=== PATIENT | male | born 1935 | race Caucasian/White ===

== ENCOUNTER → 2016-10-18 | Outpatient (CLI) | payer MEDICARE, MEDICAID | LOC: RAD 13:54 | PROVIDERS: ATTEND Specialist | DX: C90.02 Multiple myeloma in relapse (principal) | CPT/HCPCS: 77075 ==

== ENCOUNTER 2016-10-30 13:11 | Emergency (ER) | payer MEDICARE, MEDICAID ==
[~2016-10-30 13:11] MED LIST: ASPIRIN 81 MG TABLET, CHEWABLE ONE; CLOPIDOGREL BISULFATE 75 MG TABLET ONE; NITROGLYCERIN 0.4 MG/TAB 25 TAB/BOTTLE ONE
[2016-10-30] MEDS ORDERED: ENOXAPARIN SODIUM INJ 100 MG/1 ML DISP.SYRIN SUBCUT ONE (13:34)
[2016-10-30] MEDS ORDERED: ASPIRIN 81 MG TABLET, CHEWABLE PO ONE (13:35)
[2016-10-30] MEDS ORDERED: NITROGLYCERIN 0.4 MG/TAB 25 TAB/BOTTLE SL PRN (13:35)
[2016-10-30] MEDS ORDERED: MORPHINE SULFATE 10 MG/ML INJ IV ONE (13:35)
--- NOTE | 2016-10-30 13:42 | ER Document Report ---
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 He has never had this pain before. Pain is constant and does not radiate. Denies back pain , nausea, vomiting, fevers, cough, shortness of breath, headache, numbness or tingling. TRAVEL OUTSIDE OF THE [place] IN LAST 30 DAYS: No - Related Data Allergies/Adverse Reactions: No Known Drug Allergies Allergy (Verified 10/30/16 13:49) Past Medical History - General Information source: Patient, Relative - - Social History Smoking Status: Unknown if Ever Smoked Family History: Reviewed & Not Pertinent - Past Medical History Cardiac Medical History: Reports: Hx Congestive Heart Failure, Hx Coronary Artery Disease, Hx Hypercholesterolemia, Hx Hypertension Denies: Hx Heart Attack Pulmonary Medical History: Reports: Hx Pneumonia Denies: Hx Asthma, Hx Bronchitis, Hx COPD, Hx Tuberculosis Neurological Medical History: Denies: Hx Cerebrovascular Accident, Hx Seizures Renal/ Medical History: Reports: None Malignancy Medical History: Reports Other - Multiple Myeloma Musculoskeltal Medical History: Reports Hx Arthritis Psychiatric Medical History: Denies: Hx Depression Past Surgical History: Reports: Hx Appendectomy, Hx Herniorrhaphy - Immunizations Hx Diphtheria, Pertussis, Tetanus Vaccination: No Review of Systems - Review of Systems Notes: REVIEW OF SYSTEMS: CONSTITUTIONAL: -fevers, -chills EENT: -eye pain, -difficulty swallowing, -nasal congestion CARDIOVASCULAR: +chest pain, -syncope. RESPIRATORY: -cough, -SOB GASTROINTESTINAL: -abdominal pain, - nausea, -vomiting, -diarrhea GENITOURINARY: -dysuria, -hematuria MUSCULOSKELETAL: -back pain, -neck pain SKIN: -rash or skin lesions. HEMATOLOGIC: -easy bruising or bleeding. LYMPHATIC: -swollen, enlarged glands. NEUROLOGICAL: -altered mental status or loss of consciousness, -headache, - neurologic symptoms PSYCHIATRIC: -anxiety, -depression. ALL OTHER SYSTEMS REVIEWED AND NEGATIVE. Physical Exam - Vital signs Vitals: Resp BP Pulse Ox 26 H 129/56 H 95 10/30/16 13:25 10/30/16 13:25 10/30/16 13:25 HR 101, BP 125/52, Temp 98.3, Pulse Ox 100% on RA - Notes Notes: PHYSICAL EXAMINATION: GENERAL: Ill-appearing and in mild acute distress. HEAD: Atraumatic, normocephalic. EYES: Pupils equal round and reactive to light, extraocular movements intact, sclera anicteric, conjunctiva are normal. ENT: nares patent, oropharynx clear without exudates. Moist mucous membranes. NECK: Normal range of motion, supple without lymphadenopathy LUNGS: Breath sounds clear to auscultation bilaterally and equal. No wheezes rales or rhonchi. HEART: Regular rate and rhythm without murmurs ABDOMEN: Soft, nontender, normoactive bowel sounds. No guarding, no rebound. No masses appreciated. EXTREMITIES: Normal range of motion, no pitting or edema. No cyanosis. NEUROLOGICAL: Cranial nerves grossly intact. Normal speech, normal gait. Normal sensory, motor, and reflex exams. PSYCH: Normal mood, normal affect. SKIN: Warm, Dry, normal turgor, no rashes or lesions noted. Course - Re-evaluation Re-evalutation: Patient with active chest pain, diaphoresis and paleness. New left bundle- branch block on EKG compared to his EKG from one year ago. Activating STEMI protocol. Patient has lesions on his brain from multiple myeloma and TNK is contraindicated due to this. Providing aspirin, Lovenox, nitroglycerin, morphine and Plavix. He has not taken his home Eliquiis today. 10/30/16 13:[address] Lawson at [facility] and she has accepted patient. Arranging transportation. 10/30/16 13:[address] Lawson and she spoke to [facility], Dr. Garzon. He recommends a beta stella if the pressure can tolerate it and Lovenox. Lovenox already given. BP decreased to 95/66 after nitro. Chest pain free. Will hold the beta-stella, morphine and additional nitros due to the hypotension. Stable for transfer at 14:05 when helicopter left. - Vital Signs Vital signs: Temp Pulse Resp BP Pulse Ox 98.3 F 95 28 H 114/55 L 96 10/30/16 13:35 10/30/16 13:35 10/30/16 14:06 10/30/16 14:10 10/30/16 14:06 - Laboratory Result Diagrams: 10/30/16 13:27 10/30/16 13:27 Laboratory results interpreted by me: 10/30/16 10/30/16 10/30/16 13:27 13:27 13:27 RBC 2.21 L Hgb 8.0 L Hct 23.6 L MCV 107 H MCH 36.3 H RDW 18.4 H Plt Count 76 L Seg Neuts % (Manual) 28 L Band Neutrophils % 2 L Lymphocytes % (Manual) 48 H Monocytes % (Manual) 19 H Abs Neuts (Manual) 1.4 L Carbon Dioxide 19 L Creatinine 1.93 H Est GFR ( Amer) 41 L Est GFR (Non-Af Amer) 33 L Glucose 121 H Magnesium 1.4 L Creatine Kinase 22 L NT-Pro-B Natriuret Pep 2970 H Total Protein 6.2 L - Diagnostic Test Radiology reviewed: Image reviewed, Reports reviewed Radiology results interpreted by me: 10/30/16 13:57 CXR: NAD - EKG Interpretation by Me EKG shows normal: Sinus rhythm [place]/QRS: LBBB When compared to previous EKG there are: Changes noted - New onset LBBB Additional EKG results interpreted by me: No [place] criteria Critical Care Note - Critical Care Note Total time excluding time spent on procedures (mins): 45 Discharge - Discharge Clinical Impression: New onset left bundle branch block (LBBB) Chest pain Qualifiers: Chest pain type: chest pain due to myocardial ischemia Ischemic chest pain type : unspecified angina pectoris type Qualified Code(s): I20.9 - Angina pectoris, unspecified Condition: Serious Disposition: [facility] Admitting Provider: Dr. Lawson
[2016-10-30 13:55] LABS: HEMATOCRIT 23.6 % (37.9-51.0); HGB HCT DIFFERENCE 0.4; MEAN CORPUSCULAR HEMOGLOBIN 36.3 pg (27.0-33.4); MEAN CORPUSCULAR HGB CONC 33.9 g/dL (32.0-36.0); MEAN CORPUSCULAR VOLUME 107 fl (80-97); RED BLOOD COUNT 2.21 10^6/uL (4.35-5.55); RED CELL DISTRIBUTION WIDTH 18.4 % (11.5-14.0); WHITE BLOOD COUNT 4.7 10^3/uL (4.0-10.5)
[2016-10-30 14:04] LABS: ALANINE AMINOTRANSFERASE 45 U/L (21-72); ALBUMIN 3.6 g/dL (3.5-5.0); ALKALINE PHOSPHATASE 65 U/L (38-126); ANION GAP 16 (5-19); ASPARTATE AMINO TRANSFERASE 34 U/L (17-59); BILIRUBIN,TOTAL 1.3 mg/dL (0.2-1.3); BLOOD UREA NITROGEN 18 mg/dL (7-20); CARBON DIOXIDE 19 mmol/L (22-30); CHLORIDE 107 mmol/L (98-107); CREATINE KINASE 22 U/L (55-170); CREATININE RESULT 1.93 mg/dL (0.52-1.25); GLUCOSE 121 mg/dL (75-110); MAGNESIUM 1.4 mg/dL (1.6-2.3); POTASSIUM 3.9 mmol/L (3.6-5.0); SODIUM 141.6 mmol/L (137-145); TOTAL PROTEIN 6.2 g/dL (6.3-8.2)
[2016-10-30 14:10] LABS: BAND NEUTROPHILS % (MANUAL) 2 % (3-5); BASOPHILS % (MANUAL) 1 % (0-2); EOSINOPHILS % (MANUAL) 0 % (0-6); LYMPHOCYTES % (MANUAL) 48 % (13-45); TOTAL CELLS COUNTED 100
[2016-10-30 14:14] LABS: ANISOCYTOSIS 1+; POLYCHROMASIA SLIGHT
[2016-10-30 14:18] LABS: CREATINE KINASE MB < 0.22 ng/mL (<4.55)
[2016-10-30 14:20] LABS: TROPONIN I 0.064 ng/mL
[2016-10-30 14:24] VITALS: BP 114/55
[2016-10-30] MEDS ORDERED: CLOPIDOGREL BISULFATE 300 MG TABLET PO ONE (14:27)
[2016-10-30] MEDS ORDERED: CLOPIDOGREL BISULFATE 75 MG TABLET PO ONE (14:31)
--- NOTE | 2016-10-30 18:38 | EKG REPORT ---
SEVERITY:- ABNORMAL ECG - SINUS TACHYCARDIA ATRIAL PREMATURE COMPLEX LEFT BUNDLE BRANCH BLOCK : Confirmed by: Carmen Corona 30-Oct-2016 18:38:01
== END 2016-10-30 14:15 | disposition short-term general hospital (02) ==
LOC: ER 13:11
DX: I44.7 Left bundle-branch block, unspecified (principal); I20.9 Angina pectoris, unspecified; R07.9 Chest pain, unspecified; I25.10 Atherosclerotic heart disease of native coronary artery without angina pectoris; I50.9 Heart failure, unspecified; E78.00 Pure hypercholesterolemia, unspecified; I11.0 Hypertensive heart disease with heart failure
CPT/HCPCS: 93005; 99291; 96372; 36415; 82553; 82550; 83735; 85025; 80053; 84484; 83880; 71010; 93010; A9270 ×2; J1650

== ENCOUNTER 2016-11-29 03:42 | Emergency (ER) | payer MEDICARE, MEDICAID ==
[2016-11-29 06:14] LABS: HEMATOCRIT 28.4 % (37.9-51.0); HEMOGLOBIN 9.8 g/dL (13.5-17.0); MEAN CORPUSCULAR HEMOGLOBIN 32.4 pg (27.0-33.4); MEAN CORPUSCULAR HGB CONC 34.4 g/dL (32.0-36.0); RED BLOOD COUNT 3.01 10^6/uL (4.35-5.55); RED CELL DISTRIBUTION WIDTH 21.2 % (11.5-14.0); WHITE BLOOD COUNT 5.7 10^3/uL (4.0-10.5)
[2016-11-29 06:26] LABS: ALANINE AMINOTRANSFERASE 80 U/L (21-72); ALBUMIN 3.5 g/dL (3.5-5.0); ALKALINE PHOSPHATASE 70 U/L (38-126); ANION GAP 13 (5-19); ASPARTATE AMINO TRANSFERASE 68 U/L (17-59); BILIRUBIN,TOTAL 0.7 mg/dL (0.2-1.3); BLOOD UREA NITROGEN 23 mg/dL (7-20); CALCIUM 9.8 mg/dL (8.4-10.2); CARBON DIOXIDE 25 mmol/L (22-30); CHLORIDE 107 mmol/L (98-107); CREATINE KINASE 56 U/L (55-170); CREATININE RESULT 1.95 mg/dL (0.52-1.25); GLUCOSE 150 mg/dL (75-110); POTASSIUM 3.6 mmol/L (3.6-5.0); SODIUM 145.1 mmol/L (137-145); TOTAL PROTEIN 6.2 g/dL (6.3-8.2)
[2016-11-29 06:28] LABS: BAND NEUTROPHILS % (MANUAL) 1 % (3-5); BASOPHILS % (MANUAL) 0 % (0-2); EOSINOPHILS % (MANUAL) 0 % (0-6); LYMPHOCYTES % (MANUAL) 30 % (13-45); TOTAL CELLS COUNTED 100
[2016-11-29 06:35] LABS: ANISOCYTOSIS 3+; OVALOCYTES 1+; POIKILOCYTOSIS 2+; POLYCHROMASIA SLIGHT; TEAR DROP CELLS SLIGHT
[2016-11-29 06:36] LABS: ROULEAUX 1+
[2016-11-29 06:38] LABS: CREATINE KINASE MB 0.72 ng/mL (<4.55)
[2016-11-29 06:43] LABS: MEAN CORPUSCULAR VOLUME 94 fl (80-97)
[2016-11-29 06:45] LABS: TROPONIN I 0.226 ng/mL
[2016-11-29] MEDS ORDERED: ASPIRIN 325 MG TABLET PO ONE (06:45)
--- NOTE | 2016-11-29 07:32 | ER Document Report ---
ED General - General Chief Complaint: Fall Stated Complaint: FALL WEAKNESS Mode of Arrival: Ambulatory Information source: Patient Notes: 81 yr old male hx of MM , chf, anemia, recent transfusion presents with complaints of weakness by since last night. pt fell twice, admits ot generalized weakness. recent transfer to [facility] TRAVEL OUTSIDE OF THE [place] IN LAST 30 DAYS: No - HPI Onset: Yesterday Onset/Duration: Sudden Quality of pain: No pain Severity: Mild Pain Level: Denies Associated symptoms: Weakness Exacerbated by: Denies Relieved by: Denies Similar symptoms previously: Yes Recently seen / treated by doctor: Yes - Related Data Allergies/Adverse Reactions: No Known Drug Allergies Allergy (Verified 10/30/16 13:49) Past Medical History - Social History Smoking Status: Never Smoker Cigarette use (# per day): No Chew tobacco use (# tins/day): No Smoking Education Provided: No Family History: Reviewed & Not Pertinent - Past Medical History Cardiac Medical History: Reports: Hx Congestive Heart Failure, Hx Coronary Artery Disease, Hx Hypercholesterolemia, Hx Hypertension Denies: Hx Heart Attack Pulmonary Medical History: Reports: Hx Pneumonia Denies: Hx Asthma, Hx Bronchitis, Hx COPD, Hx Tuberculosis Neurological Medical History: Denies: Hx Cerebrovascular Accident, Hx Seizures Renal/ Medical History: Reports: Hx End Stage Renal Disease. Denies: Hx Peritoneal Dialysis Musculoskeltal Medical History: Reports Hx Arthritis Psychiatric Medical History: Denies: Hx Depression Past Surgical History: Reports: Hx Appendectomy, Hx Herniorrhaphy - Immunizations Hx Diphtheria, Pertussis, Tetanus Vaccination: No Review of Systems - Review of Systems Notes: REVIEW OF SYSTEMS: CONSTITUTIONAL : Denies fever, chills, or sweats. Denies recent illness. EENT: Denies eye, ear, throat, or mouth pain or symptoms. Denies nasal or sinus congestion or discharge. Denies throat, tongue, or mouth swelling or difficulty swallowing. CARDIOVASCULAR: Denies chest pain. Denies palpitations or racing or irregular heart beat. Denies ankle edema. RESPIRATORY: Denies cough, cold, or chest congestion. Denies shortness of breath, difficulty breathing, or wheezing. GASTROINTESTINAL: Denies abdominal pain or distention. Denies nausea, vomiting , or diarrhea. Denies blood in vomitus, stools, or per rectum. Denies black, tarry stools. Denies constipation. GENITOURINARY: Denies difficulty urinating, painful urination, burning, frequency, blood in urine, or discharge. MUSCULOSKELETAL: Denies back or neck pain or stiffness. Denies joint pain or swelling. SKIN: Denies rash, lesions or sores. HEMATOLOGIC : Denies easy bruising or bleeding. LYMPHATIC: Denies swollen, enlarged glands. NEUROLOGICAL: Admits to generalized weakness PSYCHIATRIC: Denies anxiety or stress. Denies depression, suicidal ideation, or homicidal ideation. ALL OTHER SYSTEMS REVIEWED AND NEGATIVE. Dictation was performed using [employer] voice recognition software PHYSICAL EXAMINATION: GENERAL: Well-appearing, well-nourished and in no acute distress. HEAD: Atraumatic, normocephalic. EYES: Pupils equal round and reactive to light, extraocular movements intact, sclera anicteric, conjunctiva are normal. ENT: Nares patent, oropharynx clear without exudates. Moist mucous membranes. NECK: Normal range of motion, supple without lymphadenopathy LUNGS: Breath sounds clear to auscultation bilaterally and equal. No wheezes rales or rhonchi. HEART: Regular rate and rhythm without murmurs ABDOMEN: Soft, nontender, nondistended abdomen. No guarding, no rebound. No masses appreciated. Musculoskeletal: Normal range of motion, no pitting or edema. No cyanosis. NEUROLOGICAL: Cranial nerves grossly intact. Normal speech, normal gait. Normal sensory, motor exams PSYCH: Normal mood, normal affect. SKIN: Warm, Dry, normal turgor, no rashes or lesions noted. Physical Exam - Vital signs Vitals: Temp Pulse Resp BP Pulse Ox 98.2 F 98 16 105/80 91 L 11/29/16 03:53 11/29/16 03:53 11/29/16 03:53 11/29/16 03:53 11/29/16 03:53 Course - Re-evaluation Re-evalutation: 11/29/16 07:32 contacted [facility] pt did not have any cardiac intervention there, troponins were never elevated 11/29/16 07:38 Given the patient's cardiac enzymes are elevated today I have contacted for transfer 11/29/16 07:[address] cain who will accept patient, aspirin given , he wishes to hold off on any lovenox or heparin. - Vital Signs Vital signs: Temp Pulse Resp BP Pulse Ox 98.2 F 98 20 124/69 100 11/29/16 03:53 11/29/16 03:53 11/29/16 07:01 11/29/16 07:01 11/29/16 07:01 - Laboratory Result Diagrams: 11/29/16 05:30 11/29/16 05:30 Laboratory results interpreted by me: 11/29/16 11/29/16 05:30 05:30 RBC 3.01 L Hgb 9.8 L Hct 28.4 L RDW 21.2 H Plt Count 76 L Band Neutrophils % 1 L Monocytes % (Manual) 25 H Sodium 145.1 H BUN 23 H Creatinine 1.95 H Est GFR ( Amer) 40 L Est GFR (Non-Af Amer) 33 L Glucose 150 H AST 68 H ALT 80 H Total Protein 6.2 L - Diagnostic Test Radiology reviewed: Image reviewed, Reports reviewed - EKG Interpretation by Me EKG shows normal: Sinus rhythm, [place], Intervals, QRS Complexes When compared to previous EKG there are: Changes noted - Previous EKG noted left bundle branch block, today's notes mild ischemic changes Critical Care Note - Critical Care Note Total time excluding time spent on procedures (mins): 34 Comments: 34 minutes of critical care time spent in direct contact evaluating and reevaluating the patient, treating symptoms, reviewing labs and studies and speaking with family and consultants excluding any procedures Discharge - Discharge Clinical Impression: Elevated troponin level, Weakness Congestive heart failure Qualifiers: Congestive heart failure type: unspecified congestive heart failure type Congestive heart failure chronicity: unspecified congestive heart failure chronicity Qualified Code(s): I50.9 - Heart failure, unspecified Condition: Stable Disposition: [facility]
--- NOTE | 2016-11-29 08:02 | EKG REPORT ---
SEVERITY:- ABNORMAL ECG - SINUS RHYTHM MULTIPLE VENTRICULAR PREMATURE COMPLEXES INFERIOR INFARCT, AGE INDETERMINATE CONSIDER POSTERIOR INFARCT LATERAL LEADS ARE ALSO INVOLVED BORDERLINE PROLONGED QT INTERVAL : Confirmed by: Vitaliy Scott MD 29-Nov-2016 08:02:16
[2016-11-29 09:11] VITALS: BP 101/63
[2016-11-29 15:05] LABS: PATH REVIEW PATHOLOGIST REVIEWED
== END 2016-11-29 09:11 | disposition short-term general hospital (02) ==
LOC: ER 03:42
DX: I13.2 Hypertensive heart and chronic kidney disease with heart failure and with stage 5 chronic kidney disease, or end stage renal disease (principal); N18.6 End stage renal disease; I50.9 Heart failure, unspecified; I25.10 Atherosclerotic heart disease of native coronary artery without angina pectoris; R74.8 Abnormal levels of other serum enzymes; R53.1 Weakness; Z91.81 History of falling; Z98.890 Other specified postprocedural states
CPT/HCPCS: 93005; 99291; 36415; 82553; 82550; 85025; 85610; 80053; 84484; 93010; A9270

== ENCOUNTER → 2016-12-21 | Outpatient (CLI) | payer MEDICARE, MEDICAID | LOC: RAD 11:44 | PROVIDERS: ATTEND Specialist | DX: C90.02 Multiple myeloma in relapse (principal) | CPT/HCPCS: 77075 ==

== ENCOUNTER → 2016-12-29 | Outpatient (CLI) | payer MEDICARE, MEDICAID ==
[2016-12-29 13:52] LABS: HEMATOCRIT 29.2 % (37.9-51.0); HGB HCT DIFFERENCE 0.8; MEAN CORPUSCULAR HEMOGLOBIN 32.2 pg (27.0-33.4); MEAN CORPUSCULAR HGB CONC 34.2 g/dL (32.0-36.0); MEAN CORPUSCULAR VOLUME 94 fl (80-97); RED CELL DISTRIBUTION WIDTH 17.9 % (11.5-14.0); WHITE BLOOD COUNT 6.6 10^3/uL (4.0-10.5)
[2016-12-29 13:52] LABS: APPEARANCE,URINE SLIGHTLY-CLOUDY; BILIRUBIN,URINE NEGATIVE (NEGATIVE); GLUCOSE, URINE NEGATIVE (NEGATIVE); KETONES,URINE NEGATIVE (NEGATIVE); LEUKOCYTE ESTERASE,URINE NEGATIVE (NEGATIVE); NITRITE,URINE NEGATIVE (NEGATIVE); PROTEIN,URINE NEGATIVE (NEGATIVE); URINE SPECIFIC GRAVITY 1.011; UROBILINOGEN,URINE NEGATIVE mg/dL (<2.0)
[2016-12-29 14:14] LABS: ANION GAP 15 (5-19); BLOOD UREA NITROGEN 25 mg/dL (7-20); CALCIUM 9.2 mg/dL (8.4-10.2); CARBON DIOXIDE 19 mmol/L (22-30); CHLORIDE 108 mmol/L (98-107); CREATININE RESULT 1.58 mg/dL (0.52-1.25); GLUCOSE 115 mg/dL (75-110); PHOSPHORUS 3.5 mg/dL (2.5-4.5); POTASSIUM 5.1 mmol/L (3.6-5.0); SODIUM 142.4 mmol/L (137-145)
== END ==
LOC: OD 13:02
PROVIDERS: ATTEND Internal Medicine Nephrology
DX: I12.9 Hypertensive chronic kidney disease with stage 1 through stage 4 chronic kidney disease, or unspecified chronic kidney disease (principal); N18.3 Chronic kidney disease, stage 3 (moderate); I50.9 Heart failure, unspecified; D64.9 Anemia, unspecified
CPT/HCPCS: 36415; 80048; 81001; 83970; 84100; 85027

== ENCOUNTER 2017-01-12 11:51 | Outpatient (CLI) | payer MEDICARE, MEDICAID ==
[~2017-01-12 11:51] MED LIST changes: +ACETAMINOPHEN 325 MG TABLET PO PRN; -ASPIRIN 81 MG TABLET, CHEWABLE ONE; -CLOPIDOGREL BISULFATE 75 MG TABLET ONE; +DIPHENHYDRAMINE HCL 25 MG CAPSULE PO PRN; +FUROSEMIDE INJ/PF 20 MG/2 ML SDV IV PRN; -NITROGLYCERIN 0.4 MG/TAB 25 TAB/BOTTLE ONE; +NORMAL SALINE 1000 ML 1,000 ML IV PRN
[2017-01-12 12:16] LABS: WHITE BLOOD COUNT 3.6 10^3/uL (4.0-10.5)
[2017-01-12 12:25] LABS: HEMATOCRIT 18.2 % (37.9-51.0); HGB HCT DIFFERENCE 0.7; MEAN CORPUSCULAR HEMOGLOBIN 32.6 pg (27.0-33.4); MEAN CORPUSCULAR HGB CONC 34.8 g/dL (32.0-36.0); MEAN CORPUSCULAR VOLUME 94 fl (80-97); RED BLOOD COUNT 1.94 10^6/uL (4.35-5.55); RED CELL DISTRIBUTION WIDTH 18.9 % (11.5-14.0)
[2017-01-12 12:35] LABS: HEMOGLOBIN 6.3 g/dL (13.5-17.0)
[2017-01-12 17:55] VITALS: BP 104/47
== END 2017-01-12 17:53 | disposition home or self-care (01) ==
LOC: II 11:51 → 5TH 12:51 → 2S 16:17 → II 17:53
PROVIDERS: ATTEND Specialist
PROC: 30233N0 Transfusion of Autologous Red Blood Cells into Peripheral Vein, Percutaneous Approach (ICD-10-PCS; principal; 2017-01-12)
DX: D64.9 Anemia, unspecified (principal); C90.00 Multiple myeloma not having achieved remission
CPT/HCPCS: 86900; 86901; 36430; 86850; 86920; P9016; A9270 ×2; J1940

== ENCOUNTER → 2017-01-26 | Outpatient (CLI) | payer MEDICARE, MEDICAID ==
[~2017-01-26] MED LIST changes: +ACETAMINOPHEN 325 MG TABLET ONE; -ACETAMINOPHEN 325 MG TABLET PO PRN; +DIPHENHYDRAMINE HCL 25 MG CAPSULE ONE; -DIPHENHYDRAMINE HCL 25 MG CAPSULE PO PRN; -FUROSEMIDE INJ/PF 20 MG/2 ML SDV IV PRN; -NORMAL SALINE 1000 ML 1,000 ML IV PRN
[2017-01-27 11:07] LABS: HEMATOCRIT 24.3 % (37.9-51.0); HEMOGLOBIN 8.1 g/dL (13.5-17.0); MEAN CORPUSCULAR HEMOGLOBIN 31.8 pg (27.0-33.4); MEAN CORPUSCULAR HGB CONC 33.5 g/dL (32.0-36.0); MEAN CORPUSCULAR VOLUME 95 fl (80-97); RED BLOOD COUNT 2.56 10^6/uL (4.35-5.55); RED CELL DISTRIBUTION WIDTH 19.2 % (11.5-14.0); WHITE BLOOD COUNT 5.6 10^3/uL (4.0-10.5)
== END ==
LOC: II 10:52
PROVIDERS: ATTEND Specialist
PROC: 30233N1 Transfusion of Nonautologous Red Blood Cells into Peripheral Vein, Percutaneous Approach (ICD-10-PCS; principal; 2017-01-26)
DX: D64.9 Anemia, unspecified (principal); C90.00 Multiple myeloma not having achieved remission
CPT/HCPCS: 86900; 86901; 36430; 86850; 86920; P9016; A9270 ×2

== ENCOUNTER → 2017-02-21 | Outpatient (CLI) | payer MEDICARE, MEDICAID ==
[2017-02-22 10:47] LABS: HEMATOCRIT 25.5 % (37.9-51.0); HEMOGLOBIN 8.4 g/dL (13.5-17.0); HGB HCT DIFFERENCE -0.3; MEAN CORPUSCULAR HEMOGLOBIN 30.1 pg (27.0-33.4); RED BLOOD COUNT 2.79 10^6/uL (4.35-5.55); RED CELL DISTRIBUTION WIDTH 18.9 % (11.5-14.0); WHITE BLOOD COUNT 3.4 10^3/uL (4.0-10.5)
[2017-02-22 11:09] LABS: ANION GAP 13 (5-19); BLOOD UREA NITROGEN 14 mg/dL (7-20); CARBON DIOXIDE 16 mmol/L (22-30); CHLORIDE 117 mmol/L (98-107); CREATININE RESULT 1.31 mg/dL (0.52-1.25); GLUCOSE 141 mg/dL (75-110); PHOSPHORUS 2.8 mg/dL (2.5-4.5); SODIUM 146.2 mmol/L (137-145)
[2017-02-22 11:26] LABS: CALCIUM 6.2 mg/dL (8.4-10.2)
[2017-02-22 11:49] LABS: MEAN CORPUSCULAR VOLUME 91 fl (80-97)
[2017-02-22 11:51] LABS: BAND NEUTROPHILS % (MANUAL) 1 % (3-5); BASOPHILS % (MANUAL) 0 % (0-2); EOSINOPHILS % (MANUAL) 1 % (0-6); LYMPHOCYTES % (MANUAL) 31 % (13-45); TOTAL CELLS COUNTED 100
[2017-02-22 11:52] LABS: ANISOCYTOSIS 2+; OVALOCYTES 1+; POIKILOCYTOSIS 1+; ROULEAUX 1+
== END ==
LOC: OD 11:39
PROVIDERS: ATTEND Internal Medicine Nephrology
DX: I12.9 Hypertensive chronic kidney disease with stage 1 through stage 4 chronic kidney disease, or unspecified chronic kidney disease (principal); N18.3 Chronic kidney disease, stage 3 (moderate); D64.9 Anemia, unspecified; E87.5 Hyperkalemia
CPT/HCPCS: 36415; 80048; 82533; 83970; 84100; 85025

== ENCOUNTER → 2017-03-04 | Outpatient (CLI) | payer MEDICARE, MEDICAID ==
[2017-03-05 09:17] LABS: HGB HCT DIFFERENCE -0.5; MEAN CORPUSCULAR HEMOGLOBIN 29.9 pg (27.0-33.4); MEAN CORPUSCULAR HGB CONC 32.6 g/dL (32.0-36.0); MEAN CORPUSCULAR VOLUME 92 fl (80-97); RED BLOOD COUNT 2.51 10^6/uL (4.35-5.55); RED CELL DISTRIBUTION WIDTH 19.7 % (11.5-14.0); WHITE BLOOD COUNT 6.5 10^3/uL (4.0-10.5)
[2017-03-05 09:37] LABS: ANION GAP 13 (5-19); BLOOD UREA NITROGEN 18 mg/dL (7-20); CALCIUM 10.4 mg/dL (8.4-10.2); CARBON DIOXIDE 18 mmol/L (22-30); CHLORIDE 116 mmol/L (98-107); CREATININE RESULT 1.23 mg/dL (0.52-1.25); GLUCOSE 117 mg/dL (75-110); MAGNESIUM 1.5 mg/dL (1.6-2.3); POTASSIUM 4.8 mmol/L (3.6-5.0); SODIUM 146.8 mmol/L (137-145)
[2017-03-05 09:43] LABS: HEMOGLOBIN 7.5 g/dL (13.5-17.0)
[2017-03-08 07:20] LABS: VITAMIN D 25-HYDROXY 27.9 ng/mL (30.0-100.0)
[2017-03-08 13:10] LABS: VITAMIN D 1,25 DIHYDROXY 23.4 pg/mL (19.9-79.3)
== END ==
LOC: OD 10:33
PROVIDERS: ATTEND Internal Medicine Nephrology
DX: N18.3 Chronic kidney disease, stage 3 (moderate) (principal); E87.5 Hyperkalemia; D64.9 Anemia, unspecified; E83.50 Unspecified disorder of calcium metabolism
CPT/HCPCS: 36415; 80048; 82306; 82533; 82652; 83735; 83970; 84100; 85027

== ENCOUNTER → 2017-03-07 | Outpatient (CLI) | payer MEDICARE, MEDICAID ==
[2017-03-07 11:44] LABS: HGB HCT DIFFERENCE -0.5; MEAN CORPUSCULAR HEMOGLOBIN 30.4 pg (27.0-33.4); MEAN CORPUSCULAR HGB CONC 32.6 g/dL (32.0-36.0); MEAN CORPUSCULAR VOLUME 93 fl (80-97); RED BLOOD COUNT 2.47 10^6/uL (4.35-5.55); RED CELL DISTRIBUTION WIDTH 20.9 % (11.5-14.0); WHITE BLOOD COUNT 8.9 10^3/uL (4.0-10.5)
[2017-03-07 11:47] LABS: HEMOGLOBIN 7.5 g/dL (13.5-17.0)
== END ==
LOC: OD 10:53
PROVIDERS: ATTEND Internal Medicine Nephrology
DX: D64.9 Anemia, unspecified (principal); C90.00 Multiple myeloma not having achieved remission
CPT/HCPCS: 36415; 85027

== ENCOUNTER 2017-03-10 07:41 | Outpatient (CLI) | payer MEDICARE, MEDICAID ==
[2017-03-10 08:06] LABS: HEMATOCRIT 19.7 % (37.9-51.0); HGB HCT DIFFERENCE 0.1; MEAN CORPUSCULAR HEMOGLOBIN 30.7 pg (27.0-33.4); MEAN CORPUSCULAR HGB CONC 33.5 g/dL (32.0-36.0); MEAN CORPUSCULAR VOLUME 92 fl (80-97); RED BLOOD COUNT 2.15 10^6/uL (4.35-5.55); RED CELL DISTRIBUTION WIDTH 20.8 % (11.5-14.0); WHITE BLOOD COUNT 6.5 10^3/uL (4.0-10.5)
[2017-03-10 08:12] LABS: HEMOGLOBIN 6.6 g/dL (13.5-17.0)
[2017-03-10] MEDS ORDERED: NORMAL SALINE 250 ML IV PRN (08:15)
[2017-03-10] MEDS ORDERED: ACETAMINOPHEN 325 MG TABLET PO PRN (08:16)
[2017-03-10] MEDS ORDERED: DIPHENHYDRAMINE HCL 25 MG CAPSULE PO PRN (08:16)
[2017-03-10] MEDS ORDERED: FUROSEMIDE INJ/PF 20 MG/2 ML SDV IV PRN (08:17)
[2017-03-10] MEDS ORDERED: DEXAMETHASONE SOD PHOS INJ 10 MG/1 ML VIAL IV PRN (08:18)
[2017-03-10 13:05] VITALS: BP 141/60
== END 2017-03-10 13:26 | disposition home or self-care (01) ==
LOC: II 07:41 → 5TH 07:46 → II 13:26
PROVIDERS: ATTEND Specialist
PROC: 30233N1 Transfusion of Nonautologous Red Blood Cells into Peripheral Vein, Percutaneous Approach (ICD-10-PCS; principal; 2017-03-10)
DX: D64.9 Anemia, unspecified (principal); C90.00 Multiple myeloma not having achieved remission
CPT/HCPCS: 96374; 86900; 86901; 36415; 36430; 86850; 86920; P9016; A9270 ×2; J1100

== ENCOUNTER → 2017-03-31 | Outpatient (CLI) | payer MEDICARE, MEDICAID ==
[2017-03-31 12:38] LABS: HEMOGLOBIN 8.7 g/dL (13.5-17.0); HGB HCT DIFFERENCE 0.1; MEAN CORPUSCULAR HEMOGLOBIN 30.1 pg (27.0-33.4); MEAN CORPUSCULAR HGB CONC 33.4 g/dL (32.0-36.0); MEAN CORPUSCULAR VOLUME 90 fl (80-97); RED BLOOD COUNT 2.88 10^6/uL (4.35-5.55); RED CELL DISTRIBUTION WIDTH 16.3 % (11.5-14.0); WHITE BLOOD COUNT 4.2 10^3/uL (4.0-10.5)
[2017-03-31 13:01] LABS: ANION GAP 13 (5-19); BLOOD UREA NITROGEN 28 mg/dL (7-20); CALCIUM 9.2 mg/dL (8.4-10.2); CARBON DIOXIDE 17 mmol/L (22-30); CHLORIDE 113 mmol/L (98-107); CREATININE RESULT 1.26 mg/dL (0.52-1.25); GLUCOSE 102 mg/dL (75-110); MAGNESIUM 1.9 mg/dL (1.6-2.3); POTASSIUM 4.3 mmol/L (3.6-5.0); SODIUM 142.9 mmol/L (137-145)
== END ==
LOC: OD 12:09
PROVIDERS: ATTEND Internal Medicine Nephrology
DX: N18.3 Chronic kidney disease, stage 3 (moderate) (principal); D64.9 Anemia, unspecified; E87.5 Hyperkalemia; M10.00 Idiopathic gout, unspecified site
CPT/HCPCS: 36415; 80048; 83735; 85027

== ENCOUNTER 2017-04-11 14:14 | Outpatient (CLI) | payer MEDICARE, MEDICAID ==
[~2017-04-11 14:14] MED LIST changes: -ACETAMINOPHEN 325 MG TABLET ONE; +ACETAMINOPHEN 325 MG TABLET PO PRN; -DIPHENHYDRAMINE HCL 25 MG CAPSULE ONE; +DIPHENHYDRAMINE HCL 25 MG CAPSULE PO PRN; +FUROSEMIDE INJ/PF 20 MG/2 ML SDV IV PRN; +NORMAL SALINE INJ/PF 0.9% 10 ML SDV IV PRN
[2017-04-11 14:44] LABS: HEMATOCRIT 23.2 % (37.9-51.0); HEMOGLOBIN 8.2 g/dL (13.5-17.0); HGB HCT DIFFERENCE 1.4; MEAN CORPUSCULAR HEMOGLOBIN 31.9 pg (27.0-33.4); MEAN CORPUSCULAR HGB CONC 35.1 g/dL (32.0-36.0); MEAN CORPUSCULAR VOLUME 91 fl (80-97); RED BLOOD COUNT 2.56 10^6/uL (4.35-5.55); RED CELL DISTRIBUTION WIDTH 16.8 % (11.5-14.0)
[2017-04-11] MEDS ORDERED: NORMAL SALINE 250 ML IV PRN (14:55)
[2017-04-11 20:51] VITALS: BP 128/62
== END 2017-04-11 21:26 | disposition home or self-care (01) ==
LOC: II 14:14 → 2N 14:18 → II 21:26
PROVIDERS: ATTEND Internal Medicine
PROC: 30233N1 Transfusion of Nonautologous Red Blood Cells into Peripheral Vein, Percutaneous Approach (ICD-10-PCS; principal; 2017-04-11)
DX: D64.9 Anemia, unspecified (principal)
CPT/HCPCS: 86900; 86901; 36415; 36430; 86850; 86920; P9016; A9270 ×2; J1940; 96374

== ENCOUNTER → 2017-04-27 | Outpatient (CLI) | payer MEDICARE, MEDICAID ==
[2017-04-27 13:43] LABS: MEAN CORPUSCULAR VOLUME 92 fl (80-97); WHITE BLOOD COUNT 2.4 10^3/uL (4.0-10.5)
[2017-04-27 13:47] LABS: HEMATOCRIT 21.9 % (37.9-51.0); HGB HCT DIFFERENCE 0.6; MEAN CORPUSCULAR HEMOGLOBIN 31.2 pg (27.0-33.4); RED BLOOD COUNT 2.39 10^6/uL (4.35-5.55); RED CELL DISTRIBUTION WIDTH 15.9 % (11.5-14.0)
[2017-04-27 13:54] LABS: HEMOGLOBIN 7.5 g/dL (13.5-17.0)
[2017-04-27 13:59] LABS: ANION GAP 15 (5-19); BLOOD UREA NITROGEN 16 mg/dL (7-20); CALCIUM 8.1 mg/dL (8.4-10.2); CARBON DIOXIDE 16 mmol/L (22-30); CHLORIDE 114 mmol/L (98-107); CREATININE RESULT 1.17 mg/dL (0.52-1.25); GLUCOSE 146 mg/dL (75-110); MAGNESIUM 1.7 mg/dL (1.6-2.3); POTASSIUM 3.8 mmol/L (3.6-5.0); SODIUM 144.5 mmol/L (137-145)
== END ==
LOC: OD 12:31
PROVIDERS: ATTEND Internal Medicine Nephrology
DX: N18.3 Chronic kidney disease, stage 3 (moderate) (principal); E87.5 Hyperkalemia; D64.9 Anemia, unspecified
CPT/HCPCS: 36415; 80048; 83735; 85027

== ENCOUNTER 2017-04-29 09:32 | Emergency (ER) | payer MEDICARE, MEDICAID ==
[2017-04-29] MEDS ORDERED: MORPHINE SULFATE 10 MG/ML INJ IV ONE (09:45)
--- NOTE | 2017-04-29 09:49 | ER Document Report ---
ED General - General Stated Complaint: FACIAL INJURY Time Seen by Provider: 04/29/17 09:39 Mode of Arrival: Ambulatory Information source: Patient Notes: 81-year-old male on [place] presents after a fall. Patient notes he gets lightheaded dizzy when he stands up, the symptoms have been ongoing for weeks, today he stood up felt dizzy and fell to the right side. Patient remembers the full states he did not pass out Currently patient admits to right flank pain and pain with deep breathing TRAVEL OUTSIDE OF THE [place] IN LAST 30 DAYS: No - HPI Onset: Just prior to arrival Onset/Duration: Sudden Quality of pain: [place] Severity: Mild Pain Level: 2 Associated symptoms: Body/muscle aches, Shortness of breath Exacerbated by: Deep breathing Relieved by: Denies Similar symptoms previously: Yes Recently seen / treated by doctor: Yes - Related Data Allergies/Adverse Reactions: No Known Drug Allergies Allergy (Verified 10/30/16 13:49) Past Medical History - Social History Smoking Status: Never Smoker Cigarette use (# per day): No Chew tobacco use (# tins/day): No Smoking Education Provided: No Family History: Reviewed & Not Pertinent - Past Medical History Cardiac Medical History: Reports: Hx Congestive Heart Failure, Hx Coronary Artery Disease, Hx Hypercholesterolemia, Hx Hypertension Denies: Hx Heart Attack Pulmonary Medical History: Reports: Hx Pneumonia Denies: Hx Asthma, Hx Bronchitis, Hx COPD, Hx Tuberculosis Neurological Medical History: Denies: Hx Cerebrovascular Accident, Hx Seizures Renal/ Medical History: Reports: Hx End Stage Renal Disease. Denies: Hx Peritoneal Dialysis Musculoskeltal Medical History: Reports Hx Arthritis Psychiatric Medical History: Denies: Hx Depression Past Surgical History: Reports: Hx Appendectomy, Hx Herniorrhaphy - Immunizations Hx Diphtheria, Pertussis, Tetanus Vaccination: No Review of Systems - Review of Systems Notes: REVIEW OF SYSTEMS: CONSTITUTIONAL : Denies fever, chills, or sweats. Denies recent illness. EENT: Denies eye, ear, throat, or mouth pain or symptoms. Denies nasal or sinus congestion or discharge. Denies throat, tongue, or mouth swelling or difficulty swallowing. CARDIOVASCULAR: Denies chest pain. Denies palpitations or racing or irregular heart beat. Denies ankle edema. RESPIRATORY: Admits shortness of breath GASTROINTESTINAL: Denies abdominal pain or distention. Denies nausea, vomiting , or diarrhea. Denies blood in vomitus, stools, or per rectum. Denies black, tarry stools. Denies constipation. GENITOURINARY: Denies difficulty urinating, painful urination, burning, frequency, blood in urine, or discharge. MUSCULOSKELETAL: Denies back or neck pain or stiffness. Denies joint pain or swelling. SKIN: Abrasion to right flank HEMATOLOGIC : Denies easy bruising or bleeding. LYMPHATIC: Denies swollen, enlarged glands. NEUROLOGICAL: Admits to dizziness PSYCHIATRIC: Denies anxiety or stress. Denies depression, suicidal ideation, or homicidal ideation. ALL OTHER SYSTEMS REVIEWED AND NEGATIVE. Dictation was performed using [employer] voice recognition software PHYSICAL EXAMINATION: GENERAL: Well-appearing, well-nourished and in no acute distress. C collar in place. On backboard. GCS 15 HEAD: Contusion forehead EYES: Pupils equal round and reactive to light, extraocular movements intact, sclera anicteric, conjunctiva are normal. ENT: Nares patent, oropharynx clear without exudates. Moist mucous membranes. No hemanotympanum . No blood in nares. No dental fracture NECK: Normal range of motion, supple without lymphadenopathy. Trachea midline LUNGS: Breath sounds clear to auscultation bilaterally and equal. No wheezes rales or rhonchi. HEART: Regular rate and rhythm without murmurs. Pulses intact all throughout. ABDOMEN: Soft, nontender, nondistended abdomen. No guarding, no rebound. No masses appreciated. Musculoskeletal: Normal range of motion, no pitting or edema. No cyanosis. Hip non tender, stable. NEUROLOGICAL: Cranial nerves grossly intact. Normal speech, normal gait. Normal sensory, motor, and reflex exams. PSYCH: Normal mood, normal affect. SKIN: Abrasions noted to the right flank U/S fast exam notes no obvious free fluid but this is a nondiagnostic evaluation Physical Exam - Vital signs Vitals: Pulse Resp BP Pulse Ox 83 20 155/71 H 100 04/29/17 09:44 04/29/17 09:44 04/29/17 09:44 04/29/17 09:44 Course - Re-evaluation Re-evalutation: 04/29/17 09:55 On physical examination patient does have abrasions to the right flank, there is a contusion to the forehead as well. Tenderness on palpation of the left foot first digit imaging pending 04/29/17 11:21 Ct concerning for subarrachnoid bleed. 04/29/17 11:44 Dr Benjamin Marin trauma consulted for transfer 04/29/17 11:47 - Vital Signs Vital signs: Temp Pulse Resp BP Pulse Ox 83 25 H 155/71 H 95 04/29/17 09:44 04/29/17 10:00 04/29/17 09:46 04/29/17 10:00 - Laboratory Result Diagrams: 04/29/17 10:06 04/29/17 10:06 Laboratory results interpreted by me: 04/29/17 04/29/17 10:06 10:06 RBC 3.30 L Hgb 10.0 L D Hct 29.1 L RDW 17.8 H Monocytes % (Manual) 36 H Abs Monocytes (Manual) 1.9 H Chloride 113 H Carbon Dioxide 19 L Total Protein 5.8 L Albumin 3.1 L - Diagnostic Test Radiology reviewed: Image reviewed, Reports reviewed Critical Care Note - Critical Care Note Total time excluding time spent on procedures (mins): 34 Comments: 34 minutes of critical care time spent in direct contact evaluating and reevaluating the patient, treating symptoms, reviewing labs and studies and speaking with family and consultants excluding any procedures Discharge - Discharge Clinical Impression: Subdural hematoma, Trauma Contusion Qualifiers: Encounter type: initial encounter Contusion area: thoracic wall Contusion of thoracic wall detail: back wall of thorax Laterality: right Qualified Code(s): S20.221A - Contusion of right back wall of thorax, initial encounter Condition: Stable Disposition: [facility] Referrals: MARIVEL ERICKSON MD [Primary Care Provider] - Follow up as needed
[2017-04-29 10:22] LABS: HEMATOCRIT 29.1 % (37.9-51.0); HGB HCT DIFFERENCE 0.9; MEAN CORPUSCULAR HEMOGLOBIN 30.3 pg (27.0-33.4); MEAN CORPUSCULAR HGB CONC 34.5 g/dL (32.0-36.0); RED CELL DISTRIBUTION WIDTH 17.8 % (11.5-14.0)
[2017-04-29 10:31] LABS: WHITE BLOOD COUNT 5.2 10^3/uL (4.0-10.5)
[2017-04-29 10:32] LABS: MEAN CORPUSCULAR VOLUME 88 fl (80-97)
--- NOTE | 2017-04-29 10:42 | RADIOLOGY REPORT (SQ) ---
EXAM DESCRIPTION: CT HEAD WITHOUT COMPLETED DATE/TIME: 04/29/2017 10:21 am REASON FOR STUDY: fall on eliquiis COMPARISON: None. TECHNIQUE: Axial images acquired through the brain without intravenous contrast. Images reviewed wi th bone, brain and subdural windows. Images stored on PACS. All CT scanners at this facility use dose modulation, iterative reconstruction, and/or weight based d osing when appropriate to reduce radiation dose to as low as reasonably achievable (ALARA). [facility]: Dose Right [facility]: CareDose [facility]: Dose Right [facility]: Teradose 4D [facility]: Smart [employer] RADIATION DOSE: Up-to-date CT equipment and radiation dose reduction techniques were employed. CTDIv ol: 62.8 mGy. DLP: 1163 mGy-cm. mGy. LIMITATIONS: None. FINDINGS: VENTRICLES: Prominent. CEREBRUM: No masses. No hemorrhage. No midline shift. Areas of low density in the white matter mos t likely due to chronic micro-vascular ischemic change. No evidence for acute infarction. CEREBELLUM: No masses. No hemorrhage. No alteration of density. No evidence for acute infarction. EXTRAAXIAL SPACES: Mild age-related involutional change. No fluid collections. There is some focal prominence of the tentorium on the right which could represent a small meningioma. ORBITS AND GLOBE: No intra- or extraconal masses. Normal contour of globe without masses. CALVARIUM: No fracture. There are multiple small varying size masses within the marrow cavity of the skull. The differential possibilities would include multiple myeloma or other neoplastic process ve rsus a marrow proliferative process. Clinical correlation is recommended. PARANASAL SINUSES: See results under facial CT SOFT TISSUES: No mass or hematoma. OTHER: Bilateral basal ganglia and cerebellar calcifications are identified. IMPRESSION: MILD CHRONIC CHANGES OF ATROPHY AND MICROVASCULAR ISCHEMIA. NO ACUTE PROCESS. Other fi ndings as noted above. TECHNICAL DOCUMENTATION: JOB ID: [id number] Quality ID # [id number]: Final reports with documentation of one or more dose reduction techniques (e.g., Au tomated exposure control, adjustment of the mA and/or kV according to patient size, use of iterative reconstruction technique) 2010 [employer]- All Rights Reserved
--- NOTE | 2017-04-29 10:45 | RADIOLOGY REPORT (SQ) ---
EXAM DESCRIPTION: CT FACIAL AREA WITHOUT COMPLETED DATE/TIME: 04/29/2017 10:21 am REASON FOR STUDY: fall on eliquiis COMPARISON: None. TECHNIQUE: Noncontrasted images through the facial bones and orbits windowed for bone and soft tissu e. Additional coronal and sagittal reconstructed images reviewed. All images stored on PACS. All CT scanners at this facility use dose modulation, iterative reconstruction, and/or weight based d osing when appropriate to reduce radiation dose to as low as reasonably achievable (ALARA). [facility]: Dose Right [facility]: CareDose [facility]: Dose Right [facility]: Teradose 4D [facility]: [employer] RADIATION DOSE: Up-to-date CT equipment and radiation dose reduction techniques were employed. CTDIv ol: 30.4 mGy. DLP: 654 mGy-cm. mGy. LIMITATIONS: None. FINDINGS: FACIAL BONES: No fracture or bone lesion. ORBITS: Intact. No fracture. Symmetric intact globes and retroorbital soft tissues. PARANASAL SINUSES: Mucosal thickening is identified in both maxillary antra with small mucosal polyps or retention cysts being identified. No air-fluid levels are identified. No nasal polyps. Maxillar y sinus outlets are patent. SOFT TISSUES: No mass or edema. INFERIOR BRAIN: See results under brain CT scan OTHER: No other significant finding. IMPRESSION: NO ACUTE FINDINGS. TECHNICAL DOCUMENTATION: JOB ID: [id number] Quality ID # [id number]: Final reports with documentation of one or more dose reduction techniques (e.g., Au tomated exposure control, adjustment of the mA and/or kV according to patient size, use of iterative reconstruction technique) 2010 [employer]- All Rights Reserved
[2017-04-29 10:47] LABS: ALANINE AMINOTRANSFERASE 25 U/L (21-72); ALBUMIN 3.1 g/dL (3.5-5.0); ALKALINE PHOSPHATASE 45 U/L (38-126); ANION GAP 11 (5-19); ASPARTATE AMINO TRANSFERASE 28 U/L (17-59); BILIRUBIN,DIRECT 0.4 mg/dL (0.0-0.4); BILIRUBIN,TOTAL 0.9 mg/dL (0.2-1.3); BLOOD UREA NITROGEN 20 mg/dL (7-20); CALCIUM 8.7 mg/dL (8.4-10.2); CARBON DIOXIDE 19 mmol/L (22-30); CHLORIDE 113 mmol/L (98-107); CREATININE RESULT 1.17 mg/dL (0.52-1.25); GLUCOSE 90 mg/dL (75-110); POTASSIUM 3.6 mmol/L (3.6-5.0); SODIUM 143.2 mmol/L (137-145); TOTAL PROTEIN 5.8 g/dL (6.3-8.2)
--- NOTE | 2017-04-29 10:57 | RADIOLOGY REPORT (SQ) ---
EXAM DESCRIPTION: CT CERVICAL SPINE WITHOUT COMPLETED DATE/TIME: 04/29/2017 10:33 am REASON FOR STUDY: fall on eliquiis COMPARISON: None. TECHNIQUE: Axial images acquired through the cervical spine without intravenous contrast. Images re viewed with lung, soft tissue and bone windows. Reconstructed coronal and sagittal MPR images review ed. Images stored on PACS. All CT scanners at this facility use dose modulation, iterative reconstruction, and/or weight based d osing when appropriate to reduce radiation dose to as low as reasonably achievable (ALARA). [facility]: Dose Right [facility]: CareDose [facility]: Dose Right [facility]: Teradose 4D [facility]: Smart [employer] RADIATION DOSE: Up-to-date CT equipment and radiation dose reduction techniques were employed. CTDIv ol: 22.0 mGy. DLP: 492 mGy-cm. mGy. LIMITATIONS: None. FINDINGS: ALIGNMENT: Anatomic. MINERALIZATION: Normal. VERTEBRAL BODIES: No fractures or dislocation. DISCS: Multilevel disc space narrowing with osteophytes. FACETS, LATERAL MASSES, POSTERIOR ELEMENTS: Facet arthropathy. No fractures. No dislocation. No ac madi findings. HARDWARE: None in the spine. VISUALIZED RIBS: No fractures. LUNG APICES AND SOFT TISSUES: No significant or acute findings. OTHER: No other significant finding. IMPRESSION: CHRONIC DEGENERATIVE CHANGES. NO ACUTE FINDINGS. TECHNICAL DOCUMENTATION: JOB ID: [id number] Quality ID # [id number]: Final reports with documentation of one or more dose reduction techniques (e.g., Au tomated exposure control, adjustment of the mA and/or kV according to patient size, use of iterative reconstruction technique) 2010 [employer]- All Rights Reserved
--- NOTE | 2017-04-29 10:58 | RADIOLOGY REPORT (SQ) ---
EXAM DESCRIPTION: FOOT LEFT COMPLETE COMPLETED DATE/TIME: 04/29/2017 10:36 am REASON FOR STUDY: fall COMPARISON: None. NUMBER OF VIEWS: Three views. TECHNIQUE: AP, lateral and oblique radiographic images acquired of the left foot. LIMITATIONS: None. FINDINGS: MINERALIZATION: Osteoporotic BONES: Bulky bony spurring at the 1st tarsometatarsal joint. Prominent plantar and dorsal calcaneal spurs. Old healed fracture pinky toe proximal phalanx mid shaft JOINTS: No effusions. SOFT TISSUES: No soft tissue swelling. No foreign body. Arterial vascular calcifications. OTHER: No other significant finding. IMPRESSION: No acute fracture TECHNICAL DOCUMENTATION: JOB ID: [id number] [employer]- All Rights Reserved
[2017-04-29 11:00] LABS: BAND NEUTROPHILS % (MANUAL) 3 % (3-5); BASOPHILS % (MANUAL) 0 % (0-2); EOSINOPHILS % (MANUAL) 1 % (0-6); LYMPHOCYTES % (MANUAL) 13 % (13-45); TOTAL CELLS COUNTED 100
--- NOTE | 2017-04-29 11:01 | RADIOLOGY REPORT (SQ) ---
EXAM DESCRIPTION: CT CHEST WITHOUT COMPLETED DATE/TIME: 04/29/2017 10:33 am REASON FOR STUDY: fall on eliquiis COMPARISON: None. TECHNIQUE: CT scan performed of the chest without intravenous contrast. Images reviewed with lung, soft tissue and bone windows. Reconstructed coronal and sagittal MPR images reviewed. All images st ored on PACS. All CT scanners at this facility use dose modulation, iterative reconstruction, and/or weight based d osing when appropriate to reduce radiation dose to as low as reasonably achievable (ALARA). [facility]: Dose Right [facility]: CareDose [facility]: Dose Right [facility]: Teradose 4D [facility]: Smart [place] RADIATION DOSE: Up-to-date CT equipment and radiation dose reduction techniques were employed. CTDIv ol: 14.0 mGy. DLP: 1037 mGy-cm. mGy. LIMITATIONS: No technical limitations. FINDINGS: LUNGS AND PLEURA: No masses, infiltrates, pneumothorax. No pleural effusions, calcificati ons. HILAR AND MEDIASTINAL STRUCTURES: No identified masses or abnormal nodes. No obvious aneurysm. HEART AND VASCULAR STRUCTURES: No aneurysm. No pericardial effusion. UPPER ABDOMEN: No significant findings. Limited exam. THYROID AND OTHER SOFT TISSUES: No masses. No adenopathy. BONES: No significant finding. HARDWARE: None in the chest. OTHER: No other significant findings. IMPRESSION: NO SIGNIFICANT FINDING ON NON-CONTRASTED CHEST CT. TECHNICAL DOCUMENTATION: JOB ID: [id number] Quality ID # [id number]: Final reports with documentation of one or more dose reduction techniques (e.g., Au tomated exposure control, adjustment of the mA and/or kV according to patient size, use of iterative reconstruction technique) 2010 [employer]- All Rights Reserved
[2017-04-29 11:04] LABS: ANISOCYTOSIS 1+; POLYCHROMASIA SLIGHT; TOXIC GRANULATION 1+
[2017-04-29 11:05] LABS: OVALOCYTES SLIGHT; TEAR DROP CELLS SLIGHT
[2017-04-29 11:06] LABS: BURR CELLS SLIGHT; POIKILOCYTOSIS SLIGHT
--- NOTE | 2017-04-29 11:08 | RADIOLOGY REPORT (SQ) ---
EXAM DESCRIPTION: CT ABD/PELVIS NO ORAL OR IV COMPLETED DATE/TIME: 04/29/2017 10:33 am REASON FOR STUDY: fall on eliquiis COMPARISON: None. TECHNIQUE: CT scan of the abdomen and pelvis performed without intravenous or oral contrast. Images reviewed with lung, soft tissue, and bone windows. Reconstructed coronal and sagittal MPR images revi ewed. All images stored on PACS. All CT scanners at this facility use dose modulation, iterative reconstruction, and/or weight based d osing when appropriate to reduce radiation dose to as low as reasonably achievable (ALARA). [facility]: Dose Right [facility]: CareDose [facility]: Dose Right [facility]: Teradose 4D [facility]: [place] RADIATION DOSE: mGy. LIMITATIONS: None. FINDINGS: LOWER CHEST: No significant findings. No nodules or infiltrates. NON-CONTRASTED LIVER, SPLEEN, ADRENALS: Evaluation limited by lack of IV contrast. No identified sign ificant masses. PANCREAS: No masses. No peripancreatic inflammatory changes. GALLBLADDER: No identified stones by CT criteria. No inflammatory changes to suggest cholecystitis. RIGHT KIDNEY AND URETER: No suspicious masses. Assessment limited by lack of IV contrast. No signif icant calcifications. No hydronephrosis or hydroureter. LEFT KIDNEY AND URETER: No suspicious masses. Assessment limited by lack of IV contrast. No signifi cant calcifications. No hydronephrosis or hydroureter. AORTA AND RETROPERITONEUM: No aneurysm. No retroperitoneal masses or adenopathy. BOWEL AND PERITONEAL CAVITY: No obvious masses or inflammatory changes. No free fluid. APPENDIX: Status post appendectomy PELVIS, BLADDER, AND ABDOMINAL WALL:No abnormal masses. No free fluid. Bladder normal. Small ventral hernia containing fat is identified in the upper abdomen. BONES: No acute changes. An old ununited fracture of the right 12th rib is identified. There are ve rtebral compressions with large Schmorl's nodes involving the superior endplate of the L1 vertebra an d inferior endplate of the L3 vertebra. These are age indeterminate OTHER: No other significant finding. IMPRESSION: NO SIGNIFICANT OR ACUTE PROCESS IN THE ABDOMEN OR PELVIS. TECHNICAL DOCUMENTATION: JOB ID: [id number] Quality ID # [id number]: Final reports with documentation of one or more dose reduction techniques (e.g., Au tomated exposure control, adjustment of the mA and/or kV according to patient size, use of iterative reconstruction technique) 2010 [employer]- All Rights Reserved
[2017-04-29 11:11] LABS: PLATELET CLUMPS PRESENT
[2017-04-29 12:11] LABS: PROTHROMBIN TIME 14.3 SEC (11.4-15.4)
[2017-04-29 13:03] VITALS: BP 171/65
--- NOTE | 2017-04-29 18:44 | EKG REPORT ---
SEVERITY:- ABNORMAL ECG - ATRIAL FIBRILLATION VENTRICULAR PREMATURE COMPLEX PROBABLE INFERIOR INFARCT, AGE INDETERMINATE LATERAL LEADS ARE ALSO INVOLVED : Confirmed by: Vitaliy Scott MD 29-Apr-2017 18:43:04
== END 2017-04-29 12:48 | disposition short-term general hospital (02) ==
LOC: ER 09:32
DX: S06.5X9A Traumatic subdural hemorrhage with loss of consciousness of unspecified duration, initial encounter (principal); S09.92XA Unspecified injury of nose, initial encounter; S20.221A Contusion of right back wall of thorax, initial encounter; W19.XXXA Unspecified fall, initial encounter; Z79.01 Long term (current) use of anticoagulants; R42 Dizziness and giddiness
CPT/HCPCS: 93005; 99291; 36415; 85025; 85610; 80053; 73630; 70450; 70486; 71250; 72125; 74176; 93010; J2270

== ENCOUNTER 2017-07-27 10:42 | Outpatient (CLI) | payer MEDICARE, MEDICAID ==
[~2017-07-27 10:42] MED LIST changes: -NORMAL SALINE INJ/PF 0.9% 10 ML SDV IV PRN
[2017-07-27] MEDS ORDERED: NORMAL SALINE 250 ML IV PRN (11:01)
[2017-07-27 11:11] LABS: HEMATOCRIT 24.4 % (37.9-51.0); HEMOGLOBIN 8.3 g/dL (13.5-17.0); HGB HCT DIFFERENCE 0.5; MEAN CORPUSCULAR HEMOGLOBIN 31.5 pg (27.0-33.4); MEAN CORPUSCULAR HGB CONC 34.1 g/dL (32.0-36.0); MEAN CORPUSCULAR VOLUME 93 fl (80-97); RED BLOOD COUNT 2.63 10^6/uL (4.35-5.55); RED CELL DISTRIBUTION WIDTH 17.7 % (11.5-14.0); WHITE BLOOD COUNT 4.7 10^3/uL (4.0-10.5)
[2017-07-27 16:25] VITALS: BP 131/50
== END 2017-07-27 16:45 | disposition home or self-care (01) ==
LOC: II 10:42 → 5TH 10:58 → II 16:45
PROVIDERS: ATTEND Internal Medicine Hematology & Oncology
PROC: 30233N1 Transfusion of Nonautologous Red Blood Cells into Peripheral Vein, Percutaneous Approach (ICD-10-PCS; principal; 2017-07-27)
DX: C90.00 Multiple myeloma not having achieved remission (principal); D64.9 Anemia, unspecified
CPT/HCPCS: 86900; 86901; 36415; 36430; 86850; 86920; P9016; A9270 ×2; J1940

== ENCOUNTER → 2017-08-10 | Outpatient (CLI) | payer MEDICARE, MEDICAID ==
[2017-08-10 12:36] LABS: FREE T3 2.98 pg/mL (2.77-5.27)
[2017-08-10 12:50] LABS: THYROID STIMULATING HORMONE 4.38 uIU/mL (0.47-4.68)
== END ==
LOC: OD 10:31
PROVIDERS: ATTEND Specialist
DX: F03.90 Unspecified dementia, unspecified severity, without behavioral disturbance, psychotic disturbance, mood disturbance, and anxiety (principal)
CPT/HCPCS: 36415; 82607; 82746; 84439; 84443; 84481

== ENCOUNTER 2017-09-01 09:55 | Day surgery (SDC) | payer MEDICARE, MEDICAID ==
[~2017-09-01 09:55] MED LIST changes: -ACETAMINOPHEN 325 MG TABLET PO PRN; +CHONDR SU A NA/HYALUR INTRAOC KIT (SURGICARE) ONE; -DIPHENHYDRAMINE HCL 25 MG CAPSULE PO PRN; +EPINEPHRINE INJ/PF 1 MG/1 ML AMPULE ONE; -FUROSEMIDE INJ/PF 20 MG/2 ML SDV IV PRN; +KETOROLAC TROMETHAMINE 0.45% 4 DROP/0.4 ML DROPERETTE OD PRN; +LIDOCAINE 1% INJ-PF (10 MG/ML) 30 ML SDV ONE; +TRYPAN BLUE 0.06 % OPH SOLN 0.5 ML DISP.SYRIN ONE
[2017-09-01] MEDS: BESIFLOXACIN HCL 0.6% OPH SUSP 5 ML BOTTLE OD PRN ×3 (10:49→12:03)
[2017-09-01] MEDS: TROPICAMIDE 1% OPH SOLN 3 ML OD PRN ×3 (10:49→11:09)
[2017-09-01] MEDS: TETRACAINE HCL 0.5% OPH SOLN 2 ML OD PRN ×3 (10:49→11:36)
[2017-09-01] MEDS: CYCLOPENTOLATE 0.2%/PHENYLEPHRINE 1% OPH SOLN 2 ML OD PRN ×3 (10:49→11:09)
[2017-09-01] MEDS ORDERED: MIDAZOLAM 2 MG/2 ML INJ ONE (11:06)
[2017-09-01] MEDS ORDERED: FENTANYL CITRATE INJ/PF 100 MCG/2 ML AMPUL ONE (11:07)
--- NOTE | 2017-09-01 15:33 | [facility] OPERATIVE REPORT E ---
[facility] Operative Report NAME: HASMUKH WARD AGE: 81Y DATE OF SURGERY: 09/01/2017 ROOM: PREOPERATIVE DIAGNOSIS: CATARACT, RIGHT EYE. POSTOPERATIVE DIAGNOSIS: CATARACT, RIGHT EYE. OPERATION: Cataract extraction with intraocular lens implant of the right eye. SURGEON: SREE KUMAR M.D. ANESTHESIA: Topical. PROCEDURE: After obtaining appropriate consent, the patient's right eye was prepped and draped in sterile fashion as well as the surgeon in a sterile manner and cataract surgery was started. First a paracentesis blade was used to make a small side-port incision. Viscoelastic was used to inflate the anterior chamber. Next a 2.4 mm incision was made with the paracentesis blade. A continuous capsulorrhexis incision was made using a cystotome and Utrata forceps. Following this hydrodissection was carried out to make the lens fully loose and mobile and it was rotated 90 degrees. Following this, a llycmy-kgk-[id number] technique was used to phacoemulsify the lens with a CDE of 2.05. The remaining cortex was removed with irrigation/aspiration. Provisc was instilled into the capsular bag to inflate the bag. A SN60WF, 20.5 diopter lens was placed. The remaining viscoelastic material was removed with irrigation/aspiration. Following this, a 10-0 nylon suture was used to close the incision and it was found to be watertight. Vigamox was instilled in the eye and a protective shield was placed over the eye. The patient returned to the postoperative recovery in stable condition. DICTATING PHYSICIAN: SREE KUMAR M.D. [id number] PHY#: [id number] ID: [id number] JOB#: [id number] ACCT: [id number] cc:SREE KUMAR M.D. >
--- NOTE | 2017-09-01 15:38 | [facility] DISCHARGE SUMMARY E ---
[facility] Discharge Summary NAME: HASMUKH WARD AGE: 81Y ADMITTED: 09/01/2017 DISCHARGED: 09/01/2017 HOSPITAL COURSE: This is an 81-year-old patient who underwent cataract extraction of the right eye. DIAGNOSIS: CATARACT, RIGHT EYE. He underwent surgery because he was having difficulty seeing to watch TV. DISCHARGE INSTRUCTIONS: He should be on a regular diet. No bending at his waist, no heavy lifting. He should use Besivance, Ilevro, and Durezol at 3 p.m. and 8 p.m. and sleep with a rigid shield. I will see him for his 1 day postoperative tomorrow. DICTATING PHYSICIAN: SREE KUMAR M.D. [id number] Y#: [id number] ID: [id number] JOB#: [id number] ACCT: [id number] cc:SREE KUMAR M.D. >
== END 2017-09-01 12:58 | disposition home or self-care (01) ==
LOC: SC 09:55
PROVIDERS: ATTEND Internal Medicine
PROC: 08RJ3JZ Replacement of Right Lens with Synthetic Substitute, Percutaneous Approach (ICD-10-PCS; principal; 2017-09-01 11:30)
DX: H25.89 Other age-related cataract (principal); I48.91 Unspecified atrial fibrillation; C90.00 Multiple myeloma not having achieved remission; N18.9 Chronic kidney disease, unspecified
CPT/HCPCS: 66984; V2632; J2250; J3490 ×2; A9270; J0171; 142; J3010

== ENCOUNTER → 2017-09-10 | Outpatient (CLI) | payer MEDICARE, MEDICAID ==
[2017-09-10 12:01] LABS: HEMATOCRIT 28.8 % (37.9-51.0); HEMOGLOBIN 9.9 g/dL (13.5-17.0); MEAN CORPUSCULAR HEMOGLOBIN 31.7 pg (27.0-33.4); MEAN CORPUSCULAR HGB CONC 34.2 g/dL (32.0-36.0); MEAN CORPUSCULAR VOLUME 93 fl (80-97); PLATELET COUNT 205 10^3/uL (150-450); RED BLOOD COUNT 3.11 10^6/uL (4.35-5.55); RED CELL DISTRIBUTION WIDTH 16.7 % (11.5-14.0); WHITE BLOOD COUNT 7.3 10^3/uL (4.0-10.5)
[2017-09-10 12:06] LABS: APPEARANCE,URINE SLIGHTLY-CLOUDY; BILIRUBIN,URINE NEGATIVE (NEGATIVE); COLOR,URINE YELLOW; GLUCOSE, URINE NEGATIVE (NEGATIVE); KETONES,URINE NEGATIVE (NEGATIVE); LEUKOCYTE ESTERASE,URINE NEGATIVE (NEGATIVE); NITRITE,URINE NEGATIVE (NEGATIVE); PROTEIN,URINE 30 mg/dL (NEGATIVE); URINE SPECIFIC GRAVITY 1.017; UROBILINOGEN,URINE NEGATIVE mg/dL (<2.0)
[2017-09-10 12:10] LABS: ANION GAP 12 (5-19); BLOOD UREA NITROGEN 19 mg/dL (7-20); CALCIUM 9.4 mg/dL (8.4-10.2); CARBON DIOXIDE 22 mmol/L (22-30); CHLORIDE 112 mmol/L (98-107); GLUCOSE 118 mg/dL (75-110); POTASSIUM 4.6 mmol/L (3.6-5.0); SODIUM 145.9 mmol/L (137-145)
== END ==
LOC: OD 10:42
PROVIDERS: ATTEND Physician Assistant Medical
DX: N18.3 Chronic kidney disease, stage 3 (moderate) (principal); E83.42 Hypomagnesemia
CPT/HCPCS: 36415; 80048; 81001; 85027

== ENCOUNTER 2017-10-22 07:38 | Emergency (ER) | payer MEDICARE, MEDICAID ==
[2017-10-22 08:36] LABS: HEMATOCRIT 20.9 % (37.9-51.0); MEAN CORPUSCULAR HEMOGLOBIN 31.4 pg (27.0-33.4); MEAN CORPUSCULAR HGB CONC 33.9 g/dL (32.0-36.0); MEAN CORPUSCULAR VOLUME 93 fl (80-97); PLATELET COUNT 183 10^3/uL (150-450); RED BLOOD COUNT 2.26 10^6/uL (4.35-5.55); RED CELL DISTRIBUTION WIDTH 15.6 % (11.5-14.0); WHITE BLOOD COUNT 7.5 10^3/uL (4.0-10.5)
[2017-10-22 09:04] LABS: ABSOLUTE LYMPHOCYTES# (MANUAL) 2.3 10^3/uL (0.5-4.7); ABSOLUTE MONOCYTES # (MANUAL) 0.8 10^3/uL (0.1-1.4); ABSOLUTE NEUTROPHILS# (MANUAL) 4.2 10^3/uL (1.7-8.2); BAND NEUTROPHILS % (MANUAL) 4 % (3-5); BASOPHILS % (MANUAL) 2 % (0-2); EOSINOPHILS % (MANUAL) 1 % (0-6); LYMPHOCYTES % (MANUAL) 30 % (13-45); METAMYELOCYTES % (MANUAL) 1 % (0); MONOCYTES % (MANUAL) 11 % (3-13); SEGMENTED NEUTROPHILS % (MAN) 51 % (42-78); TOTAL CELLS COUNTED 100
[2017-10-22 09:06] LABS: ANISOCYTOSIS 1+; HYPOCHROMASIA SLIGHT; PLATELET COMMENT ADEQUATE
[2017-10-22 09:09] LABS: HEMOGLOBIN 7.1 g/dL (13.5-17.0)
[2017-10-22] MEDS ORDERED: NORMAL SALINE 250 ML IV PRN (09:11)
--- NOTE | 2017-10-22 09:20 | ER Document Report ---
ED General - General Chief Complaint: Abnormal Lab Results Stated Complaint: ABNORMAL LABS Time Seen by Provider: 10/22/17 08:13 Notes: The patient is an 82-year-old male, past medical history multiple myeloma ( followed by Dr. Pop), who presents after he had outpatient blood work yesterday that showed a hemoglobin of 7.8 and his optician apprentice told him to go to the ER for transfusion. Patient is having generalized weakness, which is not unusual for him. He says he usually requires packed red blood cells about every 2.5 weeks. No longer receiving active chemotherapy. He denies blood thinner use, dark or bloody stools, shortness of breath, chest pain, nausea, vomiting, active bleeding or headache. TRAVEL OUTSIDE OF THE [place] IN LAST 30 DAYS: No - Related Data Allergies/Adverse Reactions: No Known Drug Allergies Allergy (Verified 10/22/17 07:42) Past Medical History - General Information source: Patient - Social History Smoking Status: Never Smoker Chew tobacco use (# tins/day): No Frequency of alcohol use: None Drug Abuse: None Family History: Reviewed & Not Pertinent Patient has suicidal ideation: No Patient has homicidal ideation: No - Past Medical History Cardiac Medical History: Reports: Hx Congestive Heart Failure, Hx Coronary Artery Disease, Hx Hypercholesterolemia, Hx Hypertension - ORTHOSTATIC HYPOTENTION Denies: Hx Heart Attack Pulmonary Medical History: Reports: Hx Pneumonia Denies: Hx Asthma, Hx Bronchitis, Hx COPD, Hx Tuberculosis Neurological Medical History: Denies: Hx Cerebrovascular Accident, Hx Seizures Renal/ Medical History: Reports: Hx End Stage Renal Disease. Denies: Hx Peritoneal Dialysis GI Medical History: Denies: Hx Hepatitis, Hx Hiatal Hernia, Hx Ulcer Musculoskeltal Medical History: Reports Hx Arthritis Psychiatric Medical History: Denies: Hx Depression Infectious Medical History: Denies: Hx Hepatitis Past Surgical History: Reports: Hx Appendectomy, Hx Herniorrhaphy - Immunizations Hx Diphtheria, Pertussis, Tetanus Vaccination: No Review of Systems - Review of Systems Notes: REVIEW OF SYSTEMS: CONSTITUTIONAL: -fevers, -chills EENT: -eye pain, -difficulty swallowing, -nasal congestion CARDIOVASCULAR: -chest pain, -syncope. RESPIRATORY: -cough, -SOB GASTROINTESTINAL: -abdominal pain, -nausea, -vomiting, -diarrhea GENITOURINARY: -dysuria, -hematuria MUSCULOSKELETAL: -back pain, -neck pain SKIN: -rash or skin lesions. HEMATOLOGIC: -easy bruising or bleeding. LYMPHATIC: -swollen, enlarged glands. NEUROLOGICAL: -altered mental status or loss of consciousness, -headache, - neurologic symptoms PSYCHIATRIC: -anxiety, -depression. ALL OTHER SYSTEMS REVIEWED AND NEGATIVE. Physical Exam - Vital signs Vitals: Temp Pulse Resp BP Pulse Ox 98.6 F 97 24 H 115/54 L 97 10/22/17 07:47 10/22/17 07:47 10/22/17 07:47 10/22/17 07:47 10/22/17 07:47 - Notes Notes: PHYSICAL EXAMINATION: GENERAL: Well-appearing, well-nourished and in no acute distress. HEAD: Atraumatic, normocephalic. EYES: Pupils equal round and reactive to light, extraocular movements intact, sclera anicteric, conjunctiva are pale. ENT: nares patent, oropharynx clear without exudates. Moist mucous membranes. NECK: Normal range of motion, supple without lymphadenopathy LUNGS: Breath sounds clear to auscultation bilaterally and equal. No wheezes rales or rhonchi. HEART: Regular rate and rhythm without murmurs ABDOMEN: Soft, nontender, normoactive bowel sounds. No guarding, no rebound. No masses appreciated. EXTREMITIES: Normal range of motion, no pitting or edema. No cyanosis. NEUROLOGICAL: Cranial nerves grossly intact. Normal speech, normal gait. Normal sensory and motor exams. PSYCH: Normal mood, normal affect. SKIN: Cool, Dry, normal turgor, no rashes or lesions noted. Pale skin. Course - Re-evaluation Re-evalutation: Repeat hemoglobin today is 7.1. He is hemodynamically stable and he is not having any active bleeding. Will transfuse him 2 units pRBCs and have him f/u at his [employer] this week. - Vital Signs Vital signs: Temp Pulse Resp BP Pulse Ox 98.6 F 97 22 H 135/55 H 92 10/22/17 07:47 10/22/17 07:47 10/22/17 09:01 10/22/17 09:01 10/22/17 09:01 - Laboratory Result Diagrams: 10/22/17 08:15 Laboratory results interpreted by me: 10/22/17 10/22/17 08:15 08:15 RBC 2.26 L Hgb 7.1 L Hct 20.9 L RDW 15.6 H Metamyelocytes % 1 H Crossmatch See Detail Discharge - Discharge Clinical Impression: Anemia Qualifiers: Anemia type: unspecified type Qualified Code(s): D64.9 - Anemia, unspecified Condition: Stable Additional Instructions: You received 2 units of packed red blood cells today. Follow-up with your optician apprentice this week for a recheck of your symptoms. Return to the ER if you have any worsening symptoms or any other concerns. Anemia You have been found to have a significant anemia (a lower than normal amount of red blood cells). Anemia can be due to iron deficiency, vitamin deficiency, abnormal bleeding, or internal diseases. Usually, further tests are necessary to find the exact cause of the anemia. The most common cause of anemia is iron deficiency, often brought on by blood loss. This can be treated with iron supplements. If this appears to be the most likely cause, iron tablets may be prescribed even before all tests are complete. Contact the doctor at once if you note black or tarry-looking stools, bloody vomiting, shortness of breath, chest pain, or faintness. Forms: Elevated Blood Pressure Referrals: MARIVEL ERICKSON MD [Primary Care Provider] - Follow up as needed STONEY POP MD [ACTIVE STAFF] - Follow up as needed
[2017-10-22 14:27] VITALS: BP 140/59
== END 2017-10-22 14:20 | disposition home or self-care (01) ==
LOC: ER 07:38
DX: D64.9 Anemia, unspecified (principal); R53.1 Weakness
CPT/HCPCS: 99283; 86900; 86901; 36415; 36430; 86850; 85025; 86920; P9016

== ENCOUNTER 2017-11-22 11:04 | Outpatient (CLI) | payer MEDICARE, MEDICAID ==
[2017-11-22 12:41] VITALS: BP 105/50
== END 2017-11-22 12:58 | disposition home or self-care (01) ==
LOC: II 11:04 → 5TH 12:39 → II 12:58
PROVIDERS: ATTEND Internal Medicine
PROC: 3E0337Z Introduction of Electrolytic and Water Balance Substance into Peripheral Vein, Percutaneous Approach (ICD-10-PCS; principal; 2017-11-22)
DX: E86.0 Dehydration (principal); C90.02 Multiple myeloma in relapse
CPT/HCPCS: 70470; 82565; 96360

== ENCOUNTER → 2017-11-22 | Outpatient (CLI) | payer MEDICARE, MEDICAID ==
[~2017-11-22] MED LIST changes: -CHONDR SU A NA/HYALUR INTRAOC KIT (SURGICARE) ONE; -EPINEPHRINE INJ/PF 1 MG/1 ML AMPULE ONE; -KETOROLAC TROMETHAMINE 0.45% 4 DROP/0.4 ML DROPERETTE OD PRN; -LIDOCAINE 1% INJ-PF (10 MG/ML) 30 ML SDV ONE; +NORMAL SALINE 1000 ML 1,000 ML IV PRN; -TRYPAN BLUE 0.06 % OPH SOLN 0.5 ML DISP.SYRIN ONE
--- NOTE | 2017-11-22 14:29 | RADIOLOGY REPORT (SQ) ---
EXAM DESCRIPTION: CT HEAD COMBO COMPLETED DATE/TIME: 11/22/2017 1:58 pm REASON FOR STUDY: MULTIPLE MYELOMA IN RELAPSE R51 HEADACHE C90.02 MULTIPLE MYELOMA IN RELAPSE COMPARISON: CT brain 04/29/2017 TECHNIQUE: Axial images acquired through the brain without and with intravenous contrast. Images re viewed with bone, brain and subdural windows. Images stored on PACS. All CT scanners at this facility use dose modulation, iterative reconstruction, and/or weight based d osing when appropriate to reduce radiation dose to as low as reasonably achievable (ALARA). [facility]: Dose Right [facility]: CareDose [facility]: Dose Right [facility]: Teradose 4D [facility]: Pressable CONTRAST TYPE AND DOSE: contrast/concentration: Isovue 370.00 mg/ml; Total Contrast Delivered: 44.0 ml; Total Saline Delivered: 55.0 ml RENAL FUNCTION: Creatinine 1.6 RADIATION DOSE: CT Rad equipment meets quality standard of care and radiation dose reduction techniq ues were employed. CTDIvol: 49.0 mGy. DLP: 1762 mGy-cm.. LIMITATIONS: None. FINDINGS: VENTRICLES: Normal size and contour for age. CEREBRUM: No masses. No acute hemorrhage. No midline shift. Normal andrea/white matter differentiation. No evidence for acute infarction. Benign bilateral basal ganglia calcifications. On the post contrasted images, there is no abnormal brain parenchymal or dural enhancement identified on CT. CEREBELLUM: No masses. No acute hemorrhage. Benign the dentate nucleus calcification. No evidence fo r acute infarction. No enhancing lesions post contrast. EXTRA-AXIAL SPACES: No fluid collections. No enhancing lesions. ORBITS AND GLOBE: No intra- or extraconal masses. Normal contour of globe without masses. CALVARIUM: No fracture. Multiple stable tiny lytic lesions throughout the calvarium. PARANASAL SINUSES: Completely opacified left maxillary sinus SOFT TISSUES: No mass or hematoma. OTHER: No other significant finding. IMPRESSION: Multiple stable lytic lesions throughout the calvarium. No abnormal brain parenchymal or dural masses or enhancement. EVIDENCE OF ACUTE STROKE: NO. TECHNICAL DOCUMENTATION: JOB ID: [id number] Quality ID # [id number]: Final reports with documentation of one or more dose reduction techniques (e.g., Au tomated exposure control, adjustment of the mA and/or kV according to patient size, use of iterative reconstruction technique) 2010 [employer]- All Rights Reserved Reading location - IP/workstation name: [email or web address]
== END ==
LOC: RAD 13:03
PROVIDERS: ATTEND Internal Medicine Hematology & Oncology
DX: C90.02 Multiple myeloma in relapse (principal); E86.0 Dehydration; R51 Headache
CPT/HCPCS: 70470; 82565

== ENCOUNTER → 2017-12-21 | Outpatient (CLI) | payer MEDICARE, MEDICAID ==
[2017-12-21 16:10] LABS: HEMOGLOBIN 8.9 g/dL (13.5-17.0); MEAN CORPUSCULAR HEMOGLOBIN 29.9 pg (27.0-33.4); MEAN CORPUSCULAR HGB CONC 32.9 g/dL (32.0-36.0); MEAN CORPUSCULAR VOLUME 91 fl (80-97); PLATELET COUNT 175 10^3/uL (150-450); RED BLOOD COUNT 2.98 10^6/uL (4.35-5.55); RED CELL DISTRIBUTION WIDTH 15.4 % (11.5-14.0); WHITE BLOOD COUNT 10.2 10^3/uL (4.0-10.5)
[2017-12-21 16:42] LABS: ANION GAP 11 (5-19); BLOOD UREA NITROGEN 28 mg/dL (7-20); CALCIUM 10.5 mg/dL (8.4-10.2); CARBON DIOXIDE 24 mmol/L (22-30); CHLORIDE 109 mmol/L (98-107); GLUCOSE 119 mg/dL (75-110); POTASSIUM 4.8 mmol/L (3.6-5.0); SODIUM 144.4 mmol/L (137-145)
== END ==
LOC: OD 15:36
PROVIDERS: ATTEND Internal Medicine Nephrology
DX: I12.9 Hypertensive chronic kidney disease with stage 1 through stage 4 chronic kidney disease, or unspecified chronic kidney disease (principal); N18.3 Chronic kidney disease, stage 3 (moderate); E87.5 Hyperkalemia
CPT/HCPCS: 36415; 80048; 83735; 85027

== ENCOUNTER 2018-01-04 07:26 | Inpatient (IN) | payer MEDICARE, MEDICAID ==
[~2018-01-04 07:26] MED LIST changes: +HYDROCORTISONE SOD SUCCINATE INJ/PF 100 MG/2 ML SDV IV SCH; -NORMAL SALINE 1000 ML 1,000 ML IV PRN
[2018-01-04] MEDS ORDERED: FUROSEMIDE INJ/PF 20 MG/2 ML SDV IV ONE (07:39)
[2018-01-04] MEDS ORDERED: DILTIAZEM HCL INJ 25 MG/5 ML VIAL IV ONE (07:40)
[2018-01-04] MEDS ORDERED: IPRATROPIUM/ALBUTEROL 0.5-2.5 MG/3 ML AMPUL NEB ONE ×2 (07:47→10:40)
[2018-01-04 07:54] LABS: HEMATOCRIT 27.7 % (37.9-51.0); HEMOGLOBIN 9.2 g/dL (13.5-17.0); MEAN CORPUSCULAR HEMOGLOBIN 30.9 pg (27.0-33.4); MEAN CORPUSCULAR HGB CONC 33.1 g/dL (32.0-36.0); MEAN CORPUSCULAR VOLUME 93 fl (80-97); PLATELET COUNT 259 10^3/uL (150-450); RED BLOOD COUNT 2.97 10^6/uL (4.35-5.55); RED CELL DISTRIBUTION WIDTH 16.1 % (11.5-14.0); WHITE BLOOD COUNT 25.1 10^3/uL (4.0-10.5)
[2018-01-04 07:59] LABS: ARTERIAL BLOOD HCO3 16.5 mmol/L (20-26); ARTERIAL BLOOD O2 SATURATION 97.7 % (94-98); ARTERIAL BLOOD PCO2 26.5 mmHg (35-45); ARTERIAL BLOOD PH 7.41 (7.35-7.45); ARTERIAL BLOOD TOTAL CO2 17.3 mmol/L (23-27)
[2018-01-04 08:03] LABS: INTERNATIONAL RATION (INR) 1.09; PROTHROMBIN TIME 14.7 SEC (11.4-15.4)
--- NOTE | 2018-01-04 08:03 | ER Document Report ---
ED Respiratory Problem - General Chief Complaint: Respiratory Distress Stated Complaint: BREATHING DIFFICULTY Time Seen by Provider: 01/04/18 07:39 Mode of Arrival: Stretcher Information source: Emergency Med Personnel Cannot obtain history due to: Dementia Notes: History of complain-82 years old male with multiple medical history including hypertension coronary artery disease congestive heart failure, woke up this morning with extreme difficulty in breathing. His gave sublingual nitroglycerin and called the EMS. EMS found him diaphoretic hypotensive with a systolic blood pressure around 80 and heard rales throughout the lung field. They put him on BiPAP and brought him to the ED. his heart rate was rapid. According to the EMS he went to bed fairly comfortably. Did not complain of any chest pain that they know off. No fever chills or other constitutional symptoms. REVIEW OF SYSTEMS: CONSTITUTIONAL : Patient status, prevent getting review of system. He is in acute respiratory distress. ALL OTHER SYSTEMS REVIEWED AND NEGATIVE. Dictation was performed using [employer] voice recognition software PHYSICAL EXAMINATION: GENERAL: Respiratory discomfort, using abdominal and intercostal muscles to breathe. HEAD: Atraumatic, normocephalic. EYES: Pupils equal round and reactive to light, extraocular movements intact, sclera anicteric, conjunctiva are normal. ENT: Nares patent, oropharynx clear without exudates. Moist mucous membranes. NECK: Normal range of motion, supple without lymphadenopathy LUNGS: Diminished bilaterally with scattered rales HEART: Rapid heart rate ABDOMEN: Soft, nontender, nondistended abdomen. No guarding, no rebound. No masses appreciated. Musculoskeletal: Range of motion cannot be performed, no cellulitis of the lower extremity. 1-2+ pitting edema NEUROLOGICAL: Cranial nerves grossly intact. He was able to answer the question by nodding his head. PSYCH: Normal mood, normal affect. SKIN: Warm, Dry, normal turgor, no rashes or lesions noted. TRAVEL OUTSIDE OF THE [place] IN LAST 30 DAYS: No - HPI Patient complains to provider of: Chest pain, CHF Onset: This morning Duration: Continuous Quality of pain: No pain Severity: Severe Pain Level: 5 Context: Hx CHF, Hx COPD Short of Breath: Severe Chest pain/discomfort: denies: Center, Constant, Heaviness, Intermittent, Left, Pain, Radiates to arm, Radiates to back, Radiates to jaw, Right, Tightness, Worse with deep breaths Cough: denies: Nonproductive, Productive, Stridor, Suspect aspiration Sputum amount: denies: None, Scant, Small, Moderate, Large, Copious Sputum color: denies: Brown, Clear, Creamy, [place], Green, [place] tinged, Red (blood ), Red Specks, Rust, Small Clots, [place], White, Yellow - Related Data Allergies/Adverse Reactions: No Known Drug Allergies Allergy (Verified 10/22/17 07:42) Past Medical History - General Information source: Patient - Social History Smoking Status: Former Smoker Cigarette use (# per day): No Chew tobacco use (# tins/day): No Smoking Education Provided: No Frequency of alcohol use: None Drug Abuse: None Lives with: Family Family History: Reviewed & Not Pertinent - Past Medical History Cardiac Medical History: Reports: Hx Congestive Heart Failure, Hx Coronary Artery Disease, Hx Hypercholesterolemia, Hx Hypertension Denies: Hx Heart Attack Pulmonary Medical History: Reports: Hx Pneumonia Denies: Hx Asthma, Hx Bronchitis, Hx COPD, Hx Tuberculosis Neurological Medical History: Denies: Hx Cerebrovascular Accident, Hx Seizures Renal/ Medical History: Reports: Hx End Stage Renal Disease. Denies: Hx Peritoneal Dialysis GI Medical History: Denies: Hx Hepatitis, Hx Hiatal Hernia, Hx Ulcer Musculoskeltal Medical History: Reports Hx Arthritis Psychiatric Medical History: Denies: Hx Depression Infectious Medical History: Denies: Hx Hepatitis Past Surgical History: Reports: Hx Appendectomy, Hx Herniorrhaphy - Immunizations Hx Diphtheria, Pertussis, Tetanus Vaccination: No Review of Systems - Review of Systems Notes: As per history of complain -: Yes ROS unobtainable due to patient's medical condition - Patient condition prevents taking detailed ROS, due to respiratory distress Physical Exam - Vital signs Vitals: Resp Pulse Ox 45 H 100 01/04/18 07:29 01/04/18 07:29 Course - Re-evaluation Re-evalutation: 01/04/18 10:20 Course was critical management, was given IV fluid total of 3 L, managed BiPAP machine. Given antibiotic. The heart rate is still around 110. Blood pressure lingering around 90s. Case was discussed with hospitalist service and currently being admitted to ICU. 01/04/18 10:56 His respiration was about to be compromised, he was getting tired pulse oximeter started to drop. Therefore he was endotracheally intubated. - Vital Signs Vital signs: Temp Pulse Resp BP Pulse Ox 99.0 F 16 106/91 H 100 01/04/18 08:29 01/04/18 13:11 01/04/18 13:11 01/04/18 13:11 - Laboratory Result Diagrams: 01/04/18 07:35 01/04/18 07:35 Laboratory results interpreted by me: 01/04/18 01/04/18 01/04/18 07:35 07:35 07:35 WBC 25.1 H RBC 2.97 L Hgb 9.2 L Hct 27.7 L RDW 16.1 H Band Neutrophils % 1 L Lymphocytes % (Manual) 11 L Monocytes % (Manual) 25 H Metamyelocytes % 2 H Abs Neuts (Manual) 15.8 H Abs Monocytes (Manual) 6.3 H Abs Basophils (Manual) 0.3 H Carbonic Acid ABG pCO2 ABG HCO3 ABG Total CO2 Potassium 5.7 H Carbon Dioxide 17 L BUN 44 H Creatinine 1.96 H Est GFR ( Amer) 40 L Est GFR (Non-Af Amer) 33 L Glucose 245 H Lactic Acid 6.0 H Calcium 10.9 H ALT 18 L Creatine Kinase 49 L Total Protein 6.1 L 01/04/18 07:35 WBC RBC Hgb Hct RDW Band Neutrophils % Lymphocytes % (Manual) Monocytes % (Manual) Metamyelocytes % Abs Neuts (Manual) Abs Monocytes (Manual) Abs Basophils (Manual) Carbonic Acid 0.80 L ABG pCO2 26.5 L ABG HCO3 16.5 L ABG Total CO2 17.3 L Potassium Carbon Dioxide BUN Creatinine Est GFR ( Amer) Est GFR (Non-Af Amer) Glucose Lactic Acid Calcium ALT Creatine Kinase Total Protein - Diagnostic Test Radiology results interpreted by me: 01/04/18 10:21 Chest x-ray reported by radiologist as right lower lobe infiltrate and left small effusion - EKG Interpretation by Me Rate: Tachycardia [place]/QRS: LBBB Procedures - Central Line Right Subclavian Time completed: 11:55 Consent obtained: Yes Central line pre-insertion: Sterile PPE donned, Betadine prep applied, Chloraprep applied Central line lumen type: Triple Anesthetic type: 2% Lidocaine mL's of anesthesia: 10 Ultrasound guided: No CM at insertion site: 25 Line secured with sutures: Yes Central line post-insertion: Blood return from lumens, Biopatch applied, Sutured , Sterile dressing applied, Position confirmed w/ CXR Number of attempts: 1 Complications: No - Intubation Orotracheal Time of Intubation: 10:55 Airway evaluation: Normal anatomy Mallampati Classification: Class 1 Medications: Etomidate, Versed, Pancuronium Intubation method: Orotracheal Blade type: Hart Blade size: 4 ETT size: 8.0 ETT secured at: Teeth ETT secured at (cm): 25 Breath Sounds after Intubation: Equal, Right greater than left End tidal CO2 confirmed: Yes Ventilator settings: CMV Critical Care Note - Critical Care Note Total time excluding time spent on procedures (mins): 120 Comments: Critically ill septic patient, hypoxic Discharge - Discharge Clinical Impression: Septicemia, Tachycardia Right lower lobe pneumonia Qualifiers: Pneumonia type: due to unspecified organism Qualified Code(s): J18.1 - Lobar pneumonia, unspecified organism Hypotension Qualifiers: Hypotension type: other hypotension type Qualified Code(s): I95.89 - Other hypotension Condition: Serious Admitting Provider: Hospitalist Unit Admitted: ICU
[2018-01-04 08:05] LABS: ALANINE AMINOTRANSFERASE 18 U/L (21-72); ALBUMIN 3.5 g/dL (3.5-5.0); ALKALINE PHOSPHATASE 60 U/L (38-126); ANION GAP 19 (5-19); ASPARTATE AMINO TRANSFERASE 46 U/L (17-59); BILIRUBIN,DIRECT 0.4 mg/dL (0.0-0.4); BILIRUBIN,TOTAL 1.1 mg/dL (0.2-1.3); BLOOD UREA NITROGEN 44 mg/dL (7-20); CALCIUM 10.9 mg/dL (8.4-10.2); CARBON DIOXIDE 17 mmol/L (22-30); CHLORIDE 106 mmol/L (98-107); CREATINE KINASE 49 U/L (55-170); GLUCOSE 245 mg/dL (75-110); POTASSIUM 5.7 mmol/L (3.6-5.0); SODIUM 141.7 mmol/L (137-145); TOTAL PROTEIN 6.1 g/dL (6.3-8.2)
[2018-01-04 08:07] LABS: ARTERIAL BLOOD FIO2 30%
[2018-01-04 08:16] LABS: CREATINE KINASE MB 2.1 ng/mL (<4.55)
--- NOTE | 2018-01-04 08:18 | RADIOLOGY REPORT (SQ) ---
EXAM DESCRIPTION: CHEST SINGLE VIEW portable COMPLETED DATE/TIME: 01/04/2018 7:44 am REASON FOR STUDY: respiratory distress COMPARISON: Chest x-ray 10/30/[address] chest 04/29/2017 EXAM PARAMETERS: NUMBER OF VIEWS: One view. TECHNIQUE: Single frontal radiographic view of the chest acquired. Portable RADIATION DOSE: NA LIMITATIONS: None. FINDINGS: LUNGS AND PLEURA: New patchy bibasilar areas of infiltrate are seen, greater on the right, with some streaky perihilar density as well. Findings concerning for pneumonia and/or aspiration. Blunted left costophrenic angle may reflect small pleural effusion. MEDIASTINUM AND HILAR STRUCTURES: No masses. Contour normal. HEART AND VASCULAR STRUCTURES: Heart normal in size. Normal vasculature. BONES: No acute findings. HARDWARE: None in the chest. OTHER: No other significant finding. IMPRESSION: Patchy bibasilar areas of infiltrate with small left pleural effusion. TECHNICAL DOCUMENTATION: JOB ID: [id number] [employer]- All Rights Reserved Reading location - IP/workstation name: [facility]
[2018-01-04 08:19] LABS: TROPONIN I 1.3 ng/mL
[2018-01-04 08:28] LABS: ABSOLUTE LYMPHOCYTES# (MANUAL) 2.8 10^3/uL (0.5-4.7); ABSOLUTE MONOCYTES # (MANUAL) 6.3 10^3/uL (0.1-1.4); ABSOLUTE NEUTROPHILS# (MANUAL) 15.8 10^3/uL (1.7-8.2); BAND NEUTROPHILS % (MANUAL) 1 % (3-5); BASOPHILS % (MANUAL) 1 % (0-2); EOSINOPHILS % (MANUAL) 0 % (0-6); LYMPHOCYTES % (MANUAL) 11 % (13-45); METAMYELOCYTES % (MANUAL) 2 % (0); MONOCYTES % (MANUAL) 25 % (3-13); SEGMENTED NEUTROPHILS % (MAN) 60 % (42-78); TOTAL CELLS COUNTED 100
[2018-01-04 08:32] LABS: ANISOCYTOSIS 1+; OVALOCYTES 1+; POIKILOCYTOSIS 1+; POLYCHROMASIA SLIGHT
[2018-01-04 08:33] LABS: PLATELET COMMENT ADEQUATE
[2018-01-04] MEDS ORDERED: PIPERACILLIN/TAZOBACTAM 3.375 GM VIAL IV ONE (08:42)
[2018-01-04] MEDS ORDERED: VANCOMYCIN HCL INJ 1000 MG VIAL IV ONE (08:43)
[2018-01-04] MEDS ORDERED: NORMAL SALINE 1000 ML 1,000 ML IV ONE ×2 (08:48→10:05)
[2018-01-04] MEDS ORDERED: ROCURONIUM BROMIDE INJ 50 MG/5 ML VIAL IV ONE ×2 (10:39→10:55)
[2018-01-04] MEDS ORDERED: ETOMIDATE INJ/PF 20 MG/10 ML SDV IV ONE (10:42)
[2018-01-04] MEDS ORDERED: DEXTROSE 5%-WATER 250 ML with NOREPINEPHRINE BITARTRATE 4 MG IV PRN ×2 (10:58)
[2018-01-04] MEDS ORDERED: NOREPINEPHRINE BITARTRATE INJ/PF 4 MG/4 ML SDV IV ONE (11:02)
[2018-01-04] MEDS: MIDAZOLAM HCL 50 MG/100 ML RTUINJ IV PRN ×3 (11:29→22:27)
[2018-01-04] MEDS ORDERED: NORMAL SALINE 1000 ML 1,000 ML IV PRN (11:34)
[2018-01-04] MEDS ORDERED: ONDANSETRON HCL INJ/PF 4 MG/2 ML SDV IV PRN (11:34)
[2018-01-04] MEDS ORDERED: ACETAMINOPHEN 325 MG TABLET PO PRN (11:34)
--- NOTE | 2018-01-04 11:42 | RADIOLOGY REPORT (SQ) ---
EXAM DESCRIPTION: CHEST SINGLE VIEW COMPLETED DATE/TIME: 01/04/2018 11:29 am REASON FOR STUDY: Postintubation COMPARISON: AP chest 01/04/2018, 10/30/2016 CT chest 04/29/2017 EXAM PARAMETERS: NUMBER OF VIEWS: One view. TECHNIQUE: Single frontal radiographic view of the chest acquired. RADIATION DOSE: NA LIMITATIONS: None. FINDINGS: LUNGS AND PLEURA: Patchy bilateral alveolar infiltrates from pulmonary edema or pneumonia. These are stable compared to [id number] hours. Trace left pleural effusion unchanged. No pneumothorax MEDIASTINUM AND HILAR STRUCTURES: No masses. Contour normal. HEART AND VASCULAR STRUCTURES: No cardiomegaly BONES: No acute findings. HARDWARE: Endotracheal tube tip 5 to 6 cm above the mildred. Nasogastric tube tip and side port below the hemidiaphragms. OTHER: No other significant finding. IMPRESSION: Endotracheal and nasogastric tubes in good positioning Bilateral patchy alveolar infiltrates worrisome for pulmonary edema. Trace left pleural effusion TECHNICAL DOCUMENTATION: JOB ID: [id number] [employer]- All Rights Reserved Reading location - IP/workstation name: [email or web address]
[2018-01-04] MEDS ORDERED: DILTIAZEM HCL/D5W 125 MG/125 ML RTUINJ IV PRN (11:50)
[2018-01-04] MEDS ORDERED: PIPERACILLIN SODIUM/TAZOBACTAM 3.375 GM in NORMAL SALINE 100 ML IV SCH (12:00)
--- NOTE | 2018-01-04 12:59 | EKG REPORT ---
SEVERITY:- ABNORMAL ECG - SINUS RHYTHM LEFT BUNDLE BRANCH BLOCK : Confirmed by: Vitaliy Scott MD 04-Jan-2018 12:59:03
--- NOTE | 2018-01-04 13:00 | EKG REPORT ---
SEVERITY:- ABNORMAL ECG - SINUS TACHYCARDIA ATRIAL PREMATURE COMPLEX LEFT BUNDLE BRANCH BLOCK : Confirmed by: Vitaliy Scott MD 04-Jan-2018 12:59:52
--- NOTE | 2018-01-04 13:01 | RADIOLOGY REPORT (SQ) ---
EXAM DESCRIPTION: CHEST SINGLE VIEW COMPLETED DATE/TIME: 01/04/2018 12:15 pm REASON FOR STUDY: Post central line placement COMPARISON: CT chest 04/29/2017 AP chest 01/04/2018, 1059 hours EXAM PARAMETERS: NUMBER OF VIEWS: One view. TECHNIQUE: Single frontal radiographic view of the chest acquired. RADIATION DOSE: NA LIMITATIONS: None. FINDINGS: This study is immediately post right subclavian central venous catheter placement by Dr. Qasim hdz. A right subclavian catheter is present, the tip is doubled back upon itself on today's front al film pointing towards the right jugular vein. It is possible that this catheter courses up the ri ght innominate/jugular vein. Catheter tip could also be in superior vena cava out for a right upper intercostal vein. This finding was discussed with Dr. Barriga. This catheter should not be used for power injection for CT. No pneumothorax. No chest wall air. LUNGS AND PLEURA: Bilateral airspace disease, right greater than left, edema versus pneumonia. This is similar to chest films earlier today. Stable trace left pleural effusion. MEDIASTINUM AND HILAR STRUCTURES: No masses. Contour normal. HEART AND VASCULAR STRUCTURES: Mild cardiomegaly BONES: No acute findings. HARDWARE: No right-sided central line as above. Endotracheal tube, nasogastric tubes in good positio melissa. OTHER: No other significant finding. IMPRESSION: Aberrant placement of right subclavian central line, the tip is likely in the right inno minate vein/ internal jugular vein. This should not be used for power injection. No pneumothorax. Stable pulmonary edema and left pleural effusion Unchanged endotracheal and nasogastric tubes. TECHNICAL DOCUMENTATION: JOB ID: [id number] [employer]- All Rights Reserved Reading location - IP/workstation name: [email or web address]
--- NOTE | 2018-01-04 13:46 | RADIOLOGY REPORT (SQ) ---
EXAM DESCRIPTION: CHEST SINGLE VIEW COMPLETED DATE/TIME: 01/04/2018 1:30 pm REASON FOR STUDY: Lateral CXR as per Dr. Adrian for Central Line placement COMPARISON: None. EXAM PARAMETERS: NUMBER OF VIEWS: One view. TECHNIQUE: Single lateral radiographic view of the chest acquired. RADIATION DOSE: NA LIMITATIONS: None. FINDINGS: Lateral film was obtained for catheter placement. The right-sided subclavian line is iden tified, taking a loop and heading cephalad, likely in the right brachiocephalic vein/internal jugular vein. This finding was discussed with Dr. Barriga. There is consolidation in the left posterior costophrenic sulcus, atelectasis versus pneumonia. Trac e left pleural effusion. Diffuse pulmonary edema. IMPRESSION: Right subclavian central line tip in the right brachiocephalic vein/internal jugular vei n TECHNICAL DOCUMENTATION: JOB ID: [id number] [employer]- All Rights Reserved Reading location - IP/workstation name: [email or web address]
[2018-01-04] MEDS ORDERED: AMIODARONE HCL INJ 150 MG/3 ML VIAL IV ONE (14:10)
[2018-01-04] MEDS ORDERED: MORPHINE SULFATE 10 MG/ML INJ ONE (14:14)
[2018-01-04 14:17] LABS: ANION GAP 10 (5-19); BLOOD UREA NITROGEN 45 mg/dL (7-20); CALCIUM 9.5 mg/dL (8.4-10.2); CARBON DIOXIDE 23 mmol/L (22-30); CHLORIDE 110 mmol/L (98-107); GLUCOSE 152 mg/dL (75-110); POTASSIUM 5.8 mmol/L (3.6-5.0); SODIUM 143.2 mmol/L (137-145)
[2018-01-04 14:45] LABS: ARTERIAL BLOOD BASE EXCESS -8.6 mmol/L; ARTERIAL BLOOD FIO2 85%; ARTERIAL BLOOD H2CO3 1.25 mmol/L (1.05-1.35); ARTERIAL BLOOD HCO3 18.1 mmol/L (20-26); ARTERIAL BLOOD O2 SATURATION 98.6 % (94-98); ARTERIAL BLOOD PCO2 41.5 mmHg (35-45); ARTERIAL BLOOD PH 7.26 (7.35-7.45); ARTERIAL BLOOD PO2 150.2 mmHg (80-100); ARTERIAL BLOOD TOTAL CO2 19.4 mmol/L (23-27)
[2018-01-04] MEDS ORDERED: PROPOFOL 100 ML IV PRN (15:14)
[2018-01-04] MEDS ORDERED: MORPHINE SULFATE 10 MG/ML INJ IV PRN (15:15)
[2018-01-04] MEDS ORDERED: ENOXAPARIN SODIUM INJ 30 MG/0.3 ML DISP.SYRIN SUBCUT ONE (16:00)
[2018-01-04] MEDS: METHYLPREDNISOLONE INJ 40 MG/1 ML SDV IV SCH ×2 (16:06→21:31)
[2018-01-04] MEDS ORDERED: DEXTROSE 5%-WATER 500 ML with AMIODARONE HCL 900 MG IV PRN ×2 (16:20)
[2018-01-04] MEDS: DEXTROSE 5%-WATER 250 ML with NOREPINEPHRINE BITARTRATE 4 MG IV PRN ×4 (16:25→22:34)
[2018-01-04] MEDS: DEXTROSE 5%-WATER 250 ML with PHENYLEPHRINE HCL 40 MG IV PRN ×2 (16:25)
--- NOTE | 2018-01-04 17:46 | PDOC H&P ---
History of Present Illness Admission Date/PCP: 01/04/18 10:39 MARIVEL ERICKSON MD Patient complains of: Difficulty breathing and shortness of breath and possible chest pain. History of Present Illness: HASMUKH WARD is a 82 year old male admitted with difficulty breathing and shortness of breath and possible chest pain. He had woken up this morning with the above complaints. EMS was called and the found him to be diaphoretic and hypotensive with the systolic blood pressure in the 80s. Patient was placed on BiPAP and brought to the emergency room where he was found to be tachycardic as well as hypotensive. He received a fluid bolus to the total of about 3 L and was initially managed on BiPAP machine however it appears patient condition became more precarious and the immediate mechanical ventilation with endotracheal tube. By the time I saw him patient was already intubated and remained hypotensive as well as tachycardic. He was started on norepinephrine drip as well as midazolam. He was ultimately moved to the intensive care unit. He was noted to have a wide complex tachycardia and he remained hypotensive. Orders were given to start amiodarone drip and bolus and cardiology consult was obtained stat with cardioversion done by Dr. Corona. Please see Dr. Corona as consultation and procedure note. Patient remains pretty unstable and so discussion was held with the family with the CODE STATUS being changed to a DO NOT RESUSCITATE. Although he remains in atrial fibrillation I have deferred starting him on anti-coagulant for now due to his precarious situation on other multiple comorbidities. Was also noted to have an elevated troponin of 1.3 with a repeat being 2.27. He is also in no acute renal failure as well as pain hyperkalemic. Patient is also septic. Chest x-ray shows consolidation in the left posterior costophrenic sulcus with atelectasis versus pneumonia and diffuse pulmonary edema. Patient's condition remains very precarious and prognosis is pretty poor Past Medical History Cardiac Medical History: Reports: Atrial Fibrillation, Congestive Heart Failure , Coronary Artery Disease, Hyperlipidema, Hypertension Denies: Myocardial Infarction Pulmonary Medical History: Reports: Pneumonia Denies: Asthma, Bronchitis, Chronic Obstructive Pulmonary Disease (COPD), Tuberculosis Neurological Medical History: Denies: Seizures Renal/ Medical History: Reports: End Stage Renal Disease GI Medical History: Denies: Hepatitis, Hiatal Hernia Musculoskeltal Medical History: Reports: Arthritis Psychiatric Medical History: Denies: Depression Hematology: Reports: Anemia Denies: Sickle Cell Disease Past Surgical History Past Surgical History: Reports: Appendectomy, Herniorrhaphy Social History Information Source: [facility] Records Lives with: Family Smoking Status: Former Smoker Frequency of Alcohol Use: None Hx Recreational Drug Use: No Drugs: None Hx Prescription Drug Abuse: No - Advance Directive Resuscitation Status: Do Not Resuscitate Family History Family History: Reviewed & Not Pertinent Parental Family History Reviewed: No - Not available Children Family History Reviewed: Unknown Sibling(s) Family History Reviewed.: Unknown Medication/Allergy Home Medications: Aspirin [Aspirin EC] 81 mg PO DAILY 01/04/18 Calcitriol [Rocaltrol 0.5 mcg Capsule] 0.5 mcg PO DAILY 01/04/18 Cholecalciferol (Vitamin D3) [Vitamin D3 5000 unit Capsule] 5,000 unit PO DAILY 01/04/18 Donepezil HCl [Aricept] 10 mg PO QHS 01/04/18 Furosemide [Lasix 20 mg Tablet] 20 mg PO BID 01/04/18 Isosorbide Mononitrate [Imdur 30 mg Tablet.er] 30 mg PO DAILY 01/04/18 Magnesium [Magnesium Gluconate] 600 mg PO QHS 01/04/18 Midodrine HCl [Proamatine 5 mg Tablet] 5 mg PO TID 01/04/18 Mirtazapine [Remeron 15 mg Tablet] 15 mg PO QHS 01/04/18 Nitroglycerin [Nitrostat 0.4 mg (1/150 Gr) Tabs 25/Bottle] 0.4 mg SL Q5MP PRN Omeprazole 20 mg PO BID 01/04/18 Promethazine HCl [Phenergan 25 mg Tablet] 25 mg PO Q6HP PRN 01/04/18 Sodium Bicarbonate [Sodium Bicarbonate 650 mg Tablet] 650 mg PO DAILY 01/04/18 Zinc [Zinc Chelated] 50 mg PO DAILY 01/04/18 Allergies/Adverse Reactions: No Known Drug Allergies Allergy (Verified 10/22/17 07:42) Review of Systems ROS unobtainable: Due to endotracheal tube Physical Exam Vital Signs: Temp Pulse Resp BP Pulse Ox 99.9 F 138 H 36 H 163/122 H 100 01/04/18 14:38 01/04/18 14:38 01/04/18 14:38 01/04/18 14:38 01/04/18 16:17 Intake & Output 01/03/18 01/04/18 01/05/18 06:59 06:59 06:59 Weight 82 kg General appearance: PRESENT: other - Intubated elderly gentleman Head exam: PRESENT: atraumatic Eye exam: PRESENT: conjunctiva pink, EOMI, PERRLA. ABSENT: scleral icterus Ear exam: PRESENT: normal external ear exam Respiratory exam: PRESENT: decreased breath sounds, other - Mechanical ventilation Cardiovascular exam: PRESENT: irregular rhythm, tachycardia Vascular exam: PRESENT: normal capillary refill GI/Abdominal exam: PRESENT: normal bowel sounds, soft. ABSENT: distended, guarding, mass, organolmegaly, rebound, tenderness Rectal exam: PRESENT: deferred Extremities exam: PRESENT: full ROM. ABSENT: calf tenderness, clubbing, pedal edema Neurological exam: PRESENT: other - Sedated Results Laboratory Results: 01/04/18 13:45 01/04/18 01/04/18 01/04/18 11:30 13:45 13:45 Carbonic Acid HCO3/H2CO3 Ratio ABG pH ABG pCO2 ABG pO2 ABG HCO3 ABG O2 Saturation ABG Base Excess FiO2 Sodium 143.2 Potassium 5.8 H Chloride 110 H Carbon Dioxide 23 Anion Gap 10 BUN 45 H Creatinine 2.28 H Est GFR ( Amer) 33 L Est GFR (Non-Af Amer) 28 L Glucose 152 H Lactic Acid 4.7 H Calcium 9.5 Magnesium 2.4 H 01/04/18 01/04/18 13:45 13:45 Carbonic Acid 1.25 Cancelled HCO3/H2CO3 Ratio 14:1 Cancelled ABG pH 7.26 L Cancelled ABG pCO2 41.5 Cancelled ABG pO2 150.2 H Cancelled ABG HCO3 18.1 L Cancelled ABG O2 Saturation 98.6 H Cancelled ABG Base Excess -8.6 Cancelled FiO2 85% Cancelled Sodium Potassium Chloride Carbon Dioxide Anion Gap BUN Creatinine Est GFR ( Amer) Est GFR (Non-Af Amer) Glucose Lactic Acid Calcium Magnesium 01/04/18 13:45 Troponin I 2.270 Impressions: Chest X-Ray 01/04/18 12:34 IMPRESSION: Right subclavian central line tip in the right brachiocephalic vein /internal jugular vein Assessment & Plan - Diagnosis (1) Acute hypoxemic respiratory failure Is this a current diagnosis for this admission?: Yes Plan: On mechanical ventilation. Patient's prognosis is very poor (2) On mechanically assisted ventilation Is this a current diagnosis for this admission?: Yes Plan: Oxygen Equipment Technician has been consulted to assist with the management (3) Acute kidney injury Is this a current diagnosis for this admission?: Yes Plan: Likely secondary to acute tubular necrosis from sepsis (4) Electrolyte abnormality Is this a current diagnosis for this admission?: Yes Plan: We will treat as indicated a possible (5) Right lower lobe pneumonia Qualifiers: Pneumonia type: due to unspecified organism Qualified Code(s): J18.1 - Lobar pneumonia, unspecified organism Is this a current diagnosis for this admission?: Yes (6) Septicemia Is this a current diagnosis for this admission?: Yes Plan: Likely secondary to pneumonia. He is on broad-spectrum antibiotics pending culture results (7) Tachycardia Is this a current diagnosis for this admission?: Yes (8) Chronic kidney disease, stage III (moderate) Is this a current diagnosis for this admission?: Yes Plan: With superimposed acute kidney failure (9) Wide-complex tachycardia Is this a current diagnosis for this admission?: Yes Plan: He was cardioverted by Dr. Corona. (10) Atrial fibrillation Qualifiers: Atrial fibrillation type: unspecified Qualified Code(s): I48.91 - Unspecified atrial fibrillation Is this a current diagnosis for this admission?: Yes Plan: Patient is currently on amiodarone drip - Time Time Spent: 50 to 70 Minutes Critical Time spent with patient: 15-24 minutes Medications reviewed and adjusted accordingly: Yes - Inpatient Certification Based on my medical assessment, after consideration of the patient's comorbidities, presenting symptoms, or acuity I expect that the services needed warrant INPATIENT care.: Yes Medical Necessity: Need for IV Antibiotics, Other - Mechanical ventilation
[2018-01-04] MEDS ORDERED: FAMOTIDINE INJ/PF 20 MG/2 ML SDV IV SCH (18:00)
[2018-01-04] MEDS ORDERED: LEVALBUTEROL HCL NEB 0.63 MG/3 ML AMPUL NEB PRN (18:03)
--- NOTE | 2018-01-04 18:08 | EKG REPORT ---
SEVERITY:- ABNORMAL ECG - WIDE COMPLEX TACHYCARDIA : Confirmed by: Vitaliy Scott MD 04-Jan-2018 18:08:01
[2018-01-04] MEDS ORDERED: SODIUM POLYSTYRENE SULFONATE 15 GM/60 ML NG ONE (18:30)
[2018-01-04] MEDS: PIPERACILLIN SODIUM/TAZOBACTAM 2.25 GM in NORMAL SALINE 50 ML IV SCH (18:58)
[2018-01-04 19:07] LABS: ARTERIAL BLOOD FIO2 70%; ARTERIAL BLOOD H2CO3 0.92 mmol/L (1.05-1.35); ARTERIAL BLOOD HCO3 18.9 mmol/L (20-26); ARTERIAL BLOOD O2 SATURATION 99.5 % (94-98); ARTERIAL BLOOD PCO2 30.7 mmHg (35-45); ARTERIAL BLOOD PH 7.41 (7.35-7.45); ARTERIAL BLOOD PO2 228.1 mmHg (80-100); ARTERIAL BLOOD TOTAL CO2 19.8 mmol/L (23-27)
--- NOTE | 2018-01-04 19:53 | PDOC CONSULTATION ---
Consultation Consult Date: 01/04/18 Consult reason:: /Acute respiratory failure/Sepsis History of Present Illness Admission Date/PCP: 01/04/18 10:39 MARIVEL ERICKSON MD History of Present Illness: HASMUKH WARD is a 82 year old male 82-year-old male intubated and sedated secondary to respiratory failure and urosepsis all information from chart as patient is intubated sedated and there are no family members at the bedside Past Medical History Cardiac Medical History: Reports: Atrial Fibrillation, Congestive Heart Failure , Coronary Artery Disease, Hyperlipidema, Hypertension Denies: Myocardial Infarction Pulmonary Medical History: Reports: Pneumonia Denies: Asthma, Bronchitis, Chronic Obstructive Pulmonary Disease (COPD), Tuberculosis Neurological Medical History: Denies: Seizures Renal/ Medical History: Reports: End Stage Renal Disease GI Medical History: Denies: Hepatitis, Hiatal Hernia Musculoskeltal Medical History: Reports: Arthritis Psychiatric Medical History: Denies: Depression Hematology: Reports: Anemia Denies: Sickle Cell Disease Past Surgical History Past Surgical History: Reports: Appendectomy, Herniorrhaphy Social History Information Source: [facility] Records Lives with: Family Smoking Status: Former Smoker Frequency of Alcohol Use: None Hx Recreational Drug Use: No Drugs: None Hx Prescription Drug Abuse: No - Advance Directive Resuscitation Status: Do Not Resuscitate Family History Parental Family History Reviewed: No Children Family History Reviewed: No Sibling(s) Family History Reviewed.: No Medication/Allergy Home Medications: Aspirin [Aspirin EC] 81 mg PO DAILY 01/04/18 Calcitriol [Rocaltrol 0.5 mcg Capsule] 0.5 mcg PO DAILY 01/04/18 Cholecalciferol (Vitamin D3) [Vitamin D3 5000 unit Capsule] 5,000 unit PO DAILY 01/04/18 Donepezil HCl [Aricept] 10 mg PO QHS 01/04/18 Furosemide [Lasix 20 mg Tablet] 20 mg PO BID 01/04/18 Isosorbide Mononitrate [Imdur 30 mg Tablet.er] 30 mg PO DAILY 01/04/18 Magnesium [Magnesium Gluconate] 600 mg PO QHS 01/04/18 Midodrine HCl [Proamatine 5 mg Tablet] 5 mg PO TID 01/04/18 Mirtazapine [Remeron 15 mg Tablet] 15 mg PO QHS 01/04/18 Nitroglycerin [Nitrostat 0.4 mg (1/150 Gr) Tabs 25/Bottle] 0.4 mg SL Q5MP PRN Omeprazole 20 mg PO BID 01/04/18 Promethazine HCl [Phenergan 25 mg Tablet] 25 mg PO Q6HP PRN 01/04/18 Sodium Bicarbonate [Sodium Bicarbonate 650 mg Tablet] 650 mg PO DAILY 01/04/18 Zinc [Zinc Chelated] 50 mg PO DAILY 01/04/18 Allergies/Adverse Reactions: No Known Drug Allergies Allergy (Verified 10/22/17 07:42) Review of Systems ROS unobtainable: Due to endotracheal tube Physical Exam Vital Signs: Temp Pulse Resp BP Pulse Ox 99.5 F 69 22 H 108/50 L 100 01/04/18 18:39 01/04/18 18:00 01/04/18 18:39 01/04/18 18:39 01/04/18 18:39 Intake & Output 01/03/18 01/04/18 01/05/18 06:59 06:59 06:59 Intake Total 1668 Output Total 10 Balance 1658 Weight 82 kg General appearance: PRESENT: no acute distress, disheveled, well-developed, well -nourished. ABSENT: cooperative Head exam: PRESENT: atraumatic, normocephalic Eye exam: PRESENT: conjunctiva pale. ABSENT: EOMI, nystagmus, periorbital swelling, scleral icterus Mouth exam: PRESENT: dry mucosa, neck supple, tongue midline, other - ET tube in place Neck exam: ABSENT: carotid bruit, JVD, lymphadenopathy, thyromegaly, tracheal deviation, tracheostomy Respiratory exam: PRESENT: decreased breath sounds, prolonged expiratory phas, rales, rhonchi, unlabored. ABSENT: retraction, stridor, tachypnea Cardiovascular exam: PRESENT: irregular rhythm, +S1, +S2, tachycardia Pulses: PRESENT: normal radial pulses GI/Abdominal exam: PRESENT: diminished bowel sounds Extremities exam: ABSENT: calf tenderness, clubbing, joint swelling Musculoskeletal exam: ABSENT: ambulatory, deformity, dislocation Neurological exam: ABSENT: awake, oriented to person Skin exam: PRESENT: dry, warm Results Laboratory Results: 01/04/18 13:45 01/04/18 01/04/18 01/04/18 11:30 13:45 13:45 Carbonic Acid HCO3/H2CO3 Ratio ABG pH ABG pCO2 ABG pO2 ABG HCO3 ABG O2 Saturation ABG Base Excess FiO2 Sodium 143.2 Potassium 5.8 H Chloride 110 H Carbon Dioxide 23 Anion Gap 10 BUN 45 H Creatinine 2.28 H Est GFR ( Amer) 33 L Est GFR (Non-Af Amer) 28 L Glucose 152 H Lactic Acid 4.7 H Calcium 9.5 Magnesium 2.4 H 01/04/18 01/04/18 01/04/18 13:45 13:45 18:40 Carbonic Acid 1.25 Cancelled 0.92 L HCO3/H2CO3 Ratio 14:1 Cancelled 20:1 ABG pH 7.26 L Cancelled 7.41 ABG pCO2 41.5 Cancelled 30.7 L ABG pO2 150.2 H Cancelled 228.1 H ABG HCO3 18.1 L Cancelled 18.9 L ABG O2 Saturation 98.6 H Cancelled 99.5 H ABG Base Excess -8.6 Cancelled -5.0 FiO2 85% Cancelled 70% Sodium Potassium Chloride Carbon Dioxide Anion Gap BUN Creatinine Est GFR ( Amer) Est GFR (Non-Af Amer) Glucose Lactic Acid Calcium Magnesium 01/04/18 13:45 Troponin I 2.270 Impressions: Chest X-Ray 01/04/18 12:34 IMPRESSION: Right subclavian central line tip in the right brachiocephalic vein /internal jugular vein Assessment & Plan - Diagnosis (1) Septic shock Is this a current diagnosis for this admission?: Yes Plan: Multiple vasopressors (2) Atrial fibrillation Qualifiers: Atrial fibrillation type: unspecified Qualified Code(s): I48.91 - Unspecified atrial fibrillation Is this a current diagnosis for this admission?: Yes Plan: Ventricular rate relatively stable (3) Right lower lobe pneumonia Qualifiers: Pneumonia type: due to unspecified organism Qualified Code(s): J18.1 - Lobar pneumonia, unspecified organism Is this a current diagnosis for this admission?: Yes Plan: No positive cultures thus far (4) Chronic kidney disease, stage III (moderate) Is this a current diagnosis for this admission?: Yes (5) Gastroesophageal reflux disease Qualifiers: Esophagitis presence: without esophagitis Qualified Code(s): K21.9 - Gastro -esophageal reflux disease without esophagitis Is this a current diagnosis for this admission?: Yes Plan: GI prophylaxis (6) Multiple myeloma Is this a current diagnosis for this admission?: Yes Plan: As per oncology - Time Total Critical Time (Minutes): 45
[2018-01-04] MEDS: IPRATROPIUM/ALBUTEROL 0.5-2.5 MG/3 ML AMPUL NEB SCH (20:33)
--- NOTE | 2018-01-04 20:52 | PDOC CONSULTATION ---
Consultation Consult Date: 01/04/18 Attending physician:: JAZMIN RAYGOZA Consult reason:: Ventricular tachycardia and hypotension. History of Present Illness Admission Date/PCP: 01/04/18 10:39 MARIVEL ERICKSON MD Patient complains of: Patient is critically ill History of Present Illness: HASMUKH WARD is a 82 year old male admitted with difficulty breathing and shortness of breath and possible chest pain. He had woken up this morning with the above complaints. EMS was called and the found him to be diaphoretic and hypotensive with the systolic blood pressure in the 80s. Patient was placed on BiPAP and brought to the emergency room where he was found to be tachycardic as well as hypotensive. He received a fluid bolus to the total of about 3 L and was initially managed on BiPAP machine however it appears patient condition became more precarious and the immediate mechanical ventilation with endotracheal tube. By the time I saw him patient was already intubated and remained hypotensive as well as tachycardic. He was started on norepinephrine drip as well as midazolam. He was ultimately moved to the intensive care unit. He was noted to have a wide complex tachycardia and he remained hypotensive. Orders were given to start amiodarone drip and bolus and cardiology consult was obtained stat with cardioversion done by Dr. Corona. Please see Dr. Corona as consultation and procedure note. Patient remains pretty unstable and so discussion was held with the family with the CODE STATUS being changed to a DO NOT RESUSCITATE. Although he remains in atrial fibrillation I have deferred starting him on anti-coagulant for now due to his precarious situation on other multiple comorbidities. Was also noted to have an elevated troponin of 1.3 with a repeat being 2.27. He is also in no acute renal failure as well as pain hyperkalemic. Patient is also septic. Chest x-ray shows consolidation in the left posterior costophrenic sulcus with atelectasis versus pneumonia and diffuse pulmonary edema. Patient's condition remains very precarious and prognosis is pretty poor. This history obtained by the hospitalist was reviewed and confirmed. As noted above I was called for stat consult. When I saw the patient, he was noted to have wide-complex tachycardia, also noted to be hypotensive on vasopressors drip. Peripheries were noted to be cool and clammy. It was felt that patient was most likely going into cardiogenic as well as septic shock. It was felt that patient needed immediate cardioversion as I felt patient was in ventricular tachycardia. Patient's was consulted in the waiting room and discussed grave situation and need for immediate cardioversion and this was performed without delay. Patient was initially cardioverted with 100 J, patient was subsequently noted to be in atrial fibrillation with rapid ventricular response and was cardioverted with 200 J after which patient was noted to be in sinus rhythm. However patient remained hypotensive and needed to be continued on vasopressors. Patient remains critically ill. I again talked with the patient's family along with the nurse in charge. It was felt that prognosis is going to be grave. It also came to attention that patient has been in ill health for quite some time. Taking everything into consideration, the family made patient to be a DNR. Do not feel patient will benefit from transfer to tertiary care. Past Medical History Cardiac Medical History: Reports: Atrial Fibrillation, Congestive Heart Failure , Coronary Artery Disease, Hyperlipidema, Hypertension Denies: Myocardial Infarction Pulmonary Medical History: Reports: Pneumonia Denies: Asthma, Bronchitis, Chronic Obstructive Pulmonary Disease (COPD), Tuberculosis Neurological Medical History: Denies: Seizures Renal/ Medical History: Reports: End Stage Renal Disease GI Medical History: Denies: Hepatitis, Hiatal Hernia Musculoskeltal Medical History: Reports: Arthritis Psychiatric Medical History: Denies: Depression Hematology: Reports: Anemia Denies: Sickle Cell Disease Past Surgical History Past Surgical History: Reports: Appendectomy, Herniorrhaphy Social History Information Source: Relative Lives with: Family Smoking Status: Former Smoker Frequency of Alcohol Use: None Hx Recreational Drug Use: No Drugs: None Hx Prescription Drug Abuse: No - Advance Directive Resuscitation Status: Do Not Resuscitate Surrogate healthcare decision maker:: Patient's is the surrogate decision-maker Family History Family History: CAD, Hypertension Parental Family History Reviewed: Yes Children Family History Reviewed: Yes Sibling(s) Family History Reviewed.: Yes Medication/Allergy Home Medications: Aspirin [Aspirin EC] 81 mg PO DAILY 01/04/18 Calcitriol [Rocaltrol 0.5 mcg Capsule] 0.5 mcg PO DAILY 01/04/18 Cholecalciferol (Vitamin D3) [Vitamin D3 5000 unit Capsule] 5,000 unit PO DAILY 01/04/18 Donepezil HCl [Aricept] 10 mg PO QHS 01/04/18 Furosemide [Lasix 20 mg Tablet] 20 mg PO BID 01/04/18 Isosorbide Mononitrate [Imdur 30 mg Tablet.er] 30 mg PO DAILY 01/04/18 Magnesium [Magnesium Gluconate] 600 mg PO QHS 01/04/18 Midodrine HCl [Proamatine 5 mg Tablet] 5 mg PO TID 01/04/18 Mirtazapine [Remeron 15 mg Tablet] 15 mg PO QHS 01/04/18 Nitroglycerin [Nitrostat 0.4 mg (1/150 Gr) Tabs 25/Bottle] 0.4 mg SL Q5MP PRN Omeprazole 20 mg PO BID 01/04/18 Promethazine HCl [Phenergan 25 mg Tablet] 25 mg PO Q6HP PRN 01/04/18 Sodium Bicarbonate [Sodium Bicarbonate 650 mg Tablet] 650 mg PO DAILY 01/04/18 Zinc [Zinc Chelated] 50 mg PO DAILY 01/04/18 Allergies/Adverse Reactions: No Known Drug Allergies Allergy (Verified 10/22/17 07:42) Review of Systems ROS unobtainable: Due to endotracheal tube Physical Exam Vital Signs: Temp Pulse Resp BP Pulse Ox 100.0 F 69 22 H 115/46 L 95 01/04/18 20:24 01/04/18 18:00 01/04/18 20:24 01/04/18 20:24 01/04/18 20:24 Intake & Output 01/03/18 01/04/18 01/05/18 06:59 06:59 06:59 Intake Total 1668 Output Total 20 Balance 1648 Weight 82 kg Exam: GENERAL: well-nourished and in no acute distress. Patient is intubated and sedated. Orientation cannot be checked HEAD: Atraumatic, normocephalic. EYES: Pupils equal round and reactive to light, extraocular movements could not be checked, sclera anicteric, conjunctiva are normal. ENT: TMs normal, nares patent, oropharynx clear without exudates. Moist mucous membranes. No oral ulcerations or bleeding gums noted NECK: supple without lymphadenopathy or JVD. Trachea is central. No cervical or axillary lymphadenopathy noted. Carotids are 2+ LUNGS: Breath sounds mostly clear to auscultation patient is noted to have bibasal crackles at the extreme bases CHEST: Palpation of the chest wall shows no significant chest wall tenderness or abnormalities. HEART: [place] [employer], No PSH, 2/6 MEHRAN aortic area, 1/6 ellis systolic murmur mitral area , no rubs or gallops. ABDOMEN: Soft, no significant tenderness appreciated, normoactive bowel sounds. No guarding, no rebound. No rigidity noted . No masses appreciated. EXTREMITIES: Pedal pulses are 1-2+, no calf tenderness noted, 1+ pedal edema noted. No clubbing or cyanosis. NEUROLOGICAL: The patient cannot participate in the neurological exam but no facial asymmetry noted. Extremities slightly hypotonic PSYCH: This cannot be evaluated. Patient cannot participate. SKIN: No significant ecchymosis, rash, or signs of pruritus noted. Skin noted to be cool and clammy. MUSCULOSKELETAL EXAM: No significant joint swelling noted. Patient cannot participate in musculoskeletal exam Results Laboratory Results: 01/04/18 13:45 01/04/18 01/04/18 01/04/18 11:30 13:45 13:45 Carbonic Acid HCO3/H2CO3 Ratio ABG pH ABG pCO2 ABG pO2 ABG HCO3 ABG O2 Saturation ABG Base Excess FiO2 Sodium 143.2 Potassium 5.8 H Chloride 110 H Carbon Dioxide 23 Anion Gap 10 BUN 45 H Creatinine 2.28 H Est GFR ( Amer) 33 L Est GFR (Non-Af Amer) 28 L Glucose 152 H Lactic Acid 4.7 H Calcium 9.5 Magnesium 2.4 H 01/04/18 01/04/18 01/04/18 13:45 13:45 18:40 Carbonic Acid 1.25 Cancelled 0.92 L HCO3/H2CO3 Ratio 14:1 Cancelled 20:1 ABG pH 7.26 L Cancelled 7.41 ABG pCO2 41.5 Cancelled 30.7 L ABG pO2 150.2 H Cancelled 228.1 H ABG HCO3 18.1 L Cancelled 18.9 L ABG O2 Saturation 98.6 H Cancelled 99.5 H ABG Base Excess -8.6 Cancelled -5.0 FiO2 85% Cancelled 70% Sodium Potassium Chloride Carbon Dioxide Anion Gap BUN Creatinine Est GFR ( Amer) Est GFR (Non-Af Amer) Glucose Lactic Acid Calcium Magnesium 01/04/18 20:00 Carbonic Acid HCO3/H2CO3 Ratio ABG pH ABG pCO2 ABG pO2 ABG HCO3 ABG O2 Saturation ABG Base Excess FiO2 Sodium Potassium Chloride Carbon Dioxide Anion Gap BUN Creatinine Est GFR ( Amer) Est GFR (Non-Af Amer) Glucose Lactic Acid 1.7 Calcium Magnesium 01/04/18 13:45 Troponin I 2.270 EKG Comments: Wide-complex tachycardia most likely ventricular tachycardia Impressions: Chest X-Ray 01/04/18 12:34 IMPRESSION: Right subclavian central line tip in the right brachiocephalic vein /internal jugular vein Assessment & Plan - Diagnosis (1) Acute hypoxemic respiratory failure Is this a current diagnosis for this admission?: Yes (2) Acute kidney injury Is this a current diagnosis for this admission?: Yes (3) Atrial fibrillation Qualifiers: Atrial fibrillation type: unspecified Qualified Code(s): I48.91 - Unspecified atrial fibrillation Is this a current diagnosis for this admission?: Yes (4) Hypotension Qualifiers: Hypotension type: other hypotension type Qualified Code(s): I95.89 - Other hypotension Is this a current diagnosis for this admission?: Yes (5) On mechanically assisted ventilation Is this a current diagnosis for this admission?: Yes (6) Septic shock Is this a current diagnosis for this admission?: Yes (7) Wide-complex tachycardia Is this a current diagnosis for this admission?: Yes (8) Chronic systolic (congestive) heart failure Is this a current diagnosis for this admission?: Yes (9) Systolic and diastolic CHF, chronic Is this a current diagnosis for this admission?: Yes (10) Non-STEMI (non-ST elevated myocardial infarction) Is this a current diagnosis for this admission?: Yes - Notes Notes: Patient with above noted problems it is critically ill in the unit. Significant time spent with the patient. At least 35 minutes of critical care time spent. Prognosis discussed with the family, patient's and son-in- law. Patient subsequently made a DNR. As noted in HPI, synchronized cardioversion was performed 2. Patient remains critically ill with poor urine output, cool clammy skin, with now suggestive enzymes indicative of patient sustaining a myocardial infarction. It seems patient has a poor baseline from before. At this point will continue supportive care. A 2D echocardiogram was ordered but not yet been performed. Feel that patient most likely has severe underlying cardiomyopathy as well. - Time Time Spent: 50 to 70 Minutes Medications reviewed and adjusted accordingly: Yes
--- NOTE | 2018-01-04 22:01 | RADIOLOGY REPORT (SQ) ---
EXAM DESCRIPTION: CHEST SINGLE VIEW COMPLETED DATE/TIME: 01/04/2018 9:50 pm REASON FOR STUDY: c-line reposition COMPARISON: None. EXAM PARAMETERS: NUMBER OF VIEWS: One view. TECHNIQUE: Single frontal radiographic view of the chest acquired. RADIATION DOSE: NA LIMITATIONS: None. FINDINGS: LUNGS AND PLEURA: There is complete opacification of the left lung with marked loss of vol ume in the left hemithorax. MEDIASTINUM AND HILAR STRUCTURES: No masses. Contour normal. HEART AND VASCULAR STRUCTURES: Heart size is indeterminate. BONES: No acute findings. HARDWARE: Endotracheal tube has its tip 3 cm above the mildred. An NG tube extends to the stomach. A right subclavian line is doubled back upon itself. OTHER: No other significant finding. IMPRESSION: 1. There appears to be a left pleural effusion and atelectasis in the left lung. 2. The right subclavian line has been withdrawn somewhat but is still doubled back upon itself. TECHNICAL DOCUMENTATION: JOB ID: [id number] [employer]- All Rights Reserved Reading location - IP/workstation name: [email or web address]
--- NOTE | 2018-01-04 22:48 | RADIOLOGY REPORT (SQ) ---
EXAM DESCRIPTION: CHEST SINGLE VIEW COMPLETED DATE/TIME: 01/04/2018 10:29 pm REASON FOR STUDY: CENTRAL LINE PLACEMENT COMPARISON: None. EXAM PARAMETERS: NUMBER OF VIEWS: One view. TECHNIQUE: Single frontal radiographic view of the chest acquired. RADIATION DOSE: NA LIMITATIONS: None. FINDINGS: LUNGS AND PLEURA: Continued marked opacification the left hemithorax with reduced volume a s described prior study. MEDIASTINUM AND HILAR STRUCTURES: No masses. Contour normal. HEART AND VASCULAR STRUCTURES: Heart normal in size. Normal vasculature. BONES: No acute findings. HARDWARE: Endotracheal tube and NG tube remain in position. A left internal jugular catheter has its tip right at the superior vena cava. The right subclavian catheter now has its tip in the superior vena cava. OTHER: No other significant finding. IMPRESSION: Left lung atelectasis with pleural effusion. Tube and catheter placement as described. TECHNICAL DOCUMENTATION: JOB ID: [id number] [employer]- All Rights Reserved Reading location - IP/workstation name: [email or web address]
[2018-01-04] MEDS ORDERED: HYDROCORTISONE SOD SUCCINATE INJ/PF 100 MG/2 ML SDV IV ONE (23:45)
[2018-01-05] MEDS: PIPERACILLIN SODIUM/TAZOBACTAM 2.25 GM in NORMAL SALINE 50 ML IV SCH (00:23)
[2018-01-05] MEDS: DEXTROSE 5%-WATER 250 ML with PHENYLEPHRINE HCL 40 MG IV PRN ×2 (00:39)
--- NOTE | 2018-01-05 00:53 | Operative Report ---
Nonrecallable Operative Report DATE OF SURGERY: 01/04/18 PREOPERATIVE DIAGNOSIS: 1. Critical illness. 2. hypotension, need for vasopressors POSTOPERATIVE DIAGNOSIS: Same as above OPERATION: 1. Ultrasound-guided central venous puncture. 2. Left internal jugular vein central line placement. SURGEON: LUCILLE HARKINS ANESTHESIA: Local TISSUE REMOVED OR ALTERED: None COMPLICATIONS: None apparent ESTIMATED BLOOD LOSS: Minimal PROCEDURE: After informed consent was obtained from the patient's , he was laid in the Trendelenburg position. The area of the left neck was prepped and draped in a normal sterile fashion. The ultrasound was used to identify the left internal jugular vein. It was compressible with normal flow. The vein was then accessed using the supplied needle, under direct ultrasonic guidance. Dark, venous, nonpulsatile blood was returned to the syringe. The wire was passed into the lumen of the vein easily. The wire was confirmed to be within the lumen of the vein using the ultrasound device. Once this was confirmed, the catheter was slid over the wire using a modified Seldinger technique. The ports were aspirated and flushed. They returned dark, venous, nonpulsatile blood. They flushed easily. The catheter was sutured to the skin, and a sterile dressing was placed. A chest x-ray was obtained, showing the central line in good position. Condition: Critical
[2018-01-05] MEDS: MIDAZOLAM HCL 50 MG/100 ML RTUINJ IV PRN (01:48)
[2018-01-05] MEDS ORDERED: MORPHINE SULFATE 10 MG/ML INJ IV PRN (02:09)
--- NOTE | 2018-01-05 02:14 | Progress Note ---
Provider Note Provider Note: MD notified by patient's nurse for elevation of troponin and ST elevation of anterior leads. Patient admitted with acute respiratory failure secondary to pneumonia with septic shock, large pleural effusion and now cardiogenic shock requiring levo fed and norepinephrine at maximal doses. Patient examined and appears comfortable on ventilator patient's at bedside is updated as to poor prognosis. Following family meeting patient's wishes to pursue comfort measures only. Medications and ventilator ordered to be withdrawn, morphine 5 mg IV q. hour as needed ordered.
[2018-01-05] MEDS: IPRATROPIUM/ALBUTEROL 0.5-2.5 MG/3 ML AMPUL NEB SCH (02:49)
--- NOTE | 2018-01-05 02:59 | ER Document Report ---
Doctor's Note Notes: 01/05/18 02:58 I was asked by the house nursing broadcast field supervisor to come the a second physician signature to make the patient comfort care. Dr. Shepard has already signed to make the patient comfort care. Per hospital policy they need a second signature or second order. I did talk to Dr. Shepard and explained the patient' s condition to me. Patient has history multiple myeloma and recently got pneumonia and septic. He is also gone to cardiogenic shock and is now on 2 pressors as well as a ventilator. I did speak with the family. I spoke primarily with but other families in the room. I explained her what constitutes comfort care. I informed her that he will most likely pass shortly after being removed from ventilator and pressors. is understanding of this and wants to go forward with comfort care. Based on the history received from Dr. Shepard about the patient I think this is appropriate decision. Dictation of this chart was performed using voice recognition software; therefore, there may be some unintended grammatical errors.
[2018-01-05 03:41] VITALS: BP 71/39
--- NOTE | 2018-01-05 07:58 | EKG REPORT ---
SEVERITY:- ABNORMAL ECG - SINUS RHYTHM ATRIAL PREMATURE COMPLEX NONSPECIFIC INTRAVENTRICULAR CONDUCTION DELAY ANTERIOR INFARCT, POSSIBLY ACUTE : Confirmed by: Vitaliy Scott MD 05-Jan-2018 07:57:17
[2018-01-05] MEDS ORDERED: ENOXAPARIN SODIUM INJ 30 MG/0.3 ML DISP.SYRIN SUBCUT SCH (10:00)
[2018-01-05] MEDS ORDERED: ENOXAPARIN SODIUM INJ 40 MG/0.4 ML DISP.SYRIN SUBCUT SCH (10:00)
--- NOTE | 2018-01-05 16:40 | Death Summary ---
Summary Date : 01/05/18 Time of :: 04:00 Autopsy: No Resuscitation Status: Comfort Measures Only Consulting Provider: Dr. Corona. Dr. Christopher - Final Diagnosis (1) Acute hypoxemic respiratory failure Is this a current diagnosis for this admission?: Yes (2) On mechanically assisted ventilation Is this a current diagnosis for this admission?: Yes (3) Acute kidney injury Is this a current diagnosis for this admission?: Yes (4) Electrolyte abnormality Is this a current diagnosis for this admission?: Yes (5) Right lower lobe pneumonia Is this a current diagnosis for this admission?: Yes (6) Septicemia Is this a current diagnosis for this admission?: Yes (7) Tachycardia Is this a current diagnosis for this admission?: Yes (8) Chronic kidney disease, stage III (moderate) Is this a current diagnosis for this admission?: Yes (9) Wide-complex tachycardia Is this a current diagnosis for this admission?: Yes (10) Atrial fibrillation Is this a current diagnosis for this admission?: Yes (11) Cardiogenic shock Is this a current diagnosis for this admission?: Yes (12) Septic shock Is this a current diagnosis for this admission?: Yes Hospital Course:: Patient was admitted with the acute respiratory failure requiring intubation. Was found to have large pleural effusion most likely parapneumonic as well as pneumonia and acute non-ST elevation PR. She was intubated in the emergency room and had been monitored in the intensive care unit. He developed atrial fibrillation as well as a white complex tachycardia that required cardioversion. He was started on Levophed as well as amiodarone drip but patient remained in septic shock. Patient's condition continued to deteriorate and after consultation with the covering furniture mover patient was made comfort care with withdrawal of care about.[phone] and patient about 20 minutes later at 4 AM on January 05, 2018. He was also seen by the refractory tile helper on consultation Patient's condition remains very precarious and he ultimately succumbed and .
--- NOTE | 2018-01-05 20:25 | Progress Note ---
Provider Note Provider Note: Procedure note: Emergency cardioversion. Late entry Patient was seen at approximately 2 PM yesterday that is 04 January. Patient was noted to be critically ill with hypotension, cold clammy extremities. He was noted to have wide-complex tachycardia, based on history of congestive heart failure, felt to be mostly ventricular tachycardia. A decision was made to cardiovert patient. Verbal informed consent was obtained from patient's family. Patient was already sedated and intubated. Initially 100 J synchronized to QRS was given. Patient heart rate at that point was approximately 150-160. Patient converted to sinus rhythm following a small pause but quickly went into atrial fibrillation after just a beat or so. Because of underlying atrial fibrillation with rapid ventricular response, it was decided to shock patient again. In this regard patient was given a synchronized 200 J DC shock which converted patient to sinus rhythm. Patient seems to be subsequently maintaining sinus rhythm. At this point patient was started on IV amiodarone bolus and drip protocol. Patient family was talked with. It was felt that prognosis was grave. Patient was made a DNR.
== END 2018-01-05 04:00 | disposition left against medical advice (07) | DRG 871 ==
LOC: ER 07:26 → EH 10:39 → ICU 13:39
PROVIDERS: ADMIT Family Medicine; ATTEND Family Medicine
PROC: 5A1935Z Respiratory Ventilation, Less than 24 Consecutive Hours (ICD-10-PCS; principal; 2018-01-04)
PROC: 0BH17EZ Insertion of Endotracheal Airway into Trachea, Via Natural or Artificial Opening (ICD-10-PCS; 2018-01-04)
PROC: 5A09357 Assistance with Respiratory Ventilation, Less than 24 Consecutive Hours, Continuous Positive Airway Pressure (ICD-10-PCS; 2018-01-04)
PROC: 5A2204Z Restoration of Cardiac Rhythm, Single (ICD-10-PCS; 2018-01-04)
PROC: 05HM33Z Insertion of Infusion Device into Right Internal Jugular Vein, Percutaneous Approach (ICD-10-PCS; 2018-01-04)
PROC: B543ZZA Ultrasonography of Right Jugular Veins, Guidance (ICD-10-PCS; 2018-01-04)
DX: A41.9 Sepsis, unspecified organism (principal); J96.01 Acute respiratory failure with hypoxia; J18.1 Lobar pneumonia, unspecified organism; R65.21 Severe sepsis with septic shock; I21.4 Non-ST elevation (NSTEMI) myocardial infarction; N17.9 Acute kidney failure, unspecified; I47.2 Ventricular tachycardia; I13.0 Hypertensive heart and chronic kidney disease with heart failure and stage 1 through stage 4 chronic kidney disease, or unspecified chronic kidney disease; I50.42 Chronic combined systolic (congestive) and diastolic (congestive) heart failure; C90.00 Multiple myeloma not having achieved remission; Z51.5 Encounter for palliative care; E87.8 Other disorders of electrolyte and fluid balance, not elsewhere classified; I48.91 Unspecified atrial fibrillation; N18.3 Chronic kidney disease, stage 3 (moderate); R57.0 Cardiogenic shock; I25.10 Atherosclerotic heart disease of native coronary artery without angina pectoris; M19.90 Unspecified osteoarthritis, unspecified site; D63.1 Anemia in chronic kidney disease; K21.9 Gastro-esophageal reflux disease without esophagitis; I44.7 Left bundle-branch block, unspecified; Z87.891 Personal history of nicotine dependence; Z82.49 Family history of ischemic heart disease and other diseases of the circulatory system
CPT/HCPCS: 36415; 71045; 80048; 80053; 82550; 82553; 82803; 83605; 83735; 84484; 85025; 85610; 87040; 87070; 87205; 93005; 93010; 94002; 94003; 94640; 94660; 96361; 96365; 96367; 96375; 99291; 99292; C1751; J0282; J1720; J1940; J2250; J2270; J2370; J2543; J2920; J3370; J3490; J7030; J7060; J7620; S0028